=== PATIENT | male | born 1975 | race Caucasian/White ===

== ENCOUNTER 2024-06-20 08:52 | Outpatient (OUT) | payer OTHER, SELFPAY ==
--- NOTE | 2024-06-20 | XR_ITS ---
The [address] [address] Patient Name: ERIN COLE MRN: [id number] date: 1975 Sex: M Assigned Patient Location: Current Patient Location: Accession/Order Number: [id number] Exam Date: 06/20/2024 09:20 Report Date: 06/21/2024 06:37 At the request of: KARISSA BULLARD Procedure: XR foot CLARE min 3V EXAMINATION: XR foot CLARE min 3V HISTORY: BILATERAL FOOT PAIN COMPARISON: No relevant comparison available. FINDINGS: RIGHT FINDINGS: BONES: Degenerative ossified along dorsal margins of the talonavicular joints and the cuneiform-metatarsal joints. No fracture or dislocation. Moderate degenerative enthesopathic spurring at the Achilles tendon and plantar aponeurosis insertions into the calcaneus. SOFT TISSUES: No visible soft tissue swelling. OTHER: Negative. LEFT FINDINGS: BONES: Mild degenerative joint disease of the midfoot. No fracture or dislocation. Large calcaneal plantar spur and a calcification within the plantar aponeurosis. Moderate degenerative enthesopathic spurring at Achilles tendon insertion into the calcaneus. SOFT TISSUES: No visible soft tissue swelling. OTHER: Negative. XR/XR foot CLARE min 3V IMPRESSION: RIGHT CONCLUSION: Mild/moderate degenerative changes predominantly involving the midfoot. LEFT CONCLUSION: Mild to moderate degenerative changes of the midfoot and degenerative enthesopathic spurring of the calcaneus. Electronically authenticated by: DRE PHAN Date: 06/21/2024 06:37
== END 2024-06-20 08:53 | disposition home or self-care (01) ==
LOC: EC 08:52
PROVIDERS: PCP Family Medicine; Visit Provider Podiatrist Foot & Ankle Surgery
DX: M79.672 Pain in left foot (principal); M79.671 Pain in right foot; M19.072 Primary osteoarthritis, left ankle and foot; M19.071 Primary osteoarthritis, right ankle and foot
CPT/HCPCS: 73630

== ENCOUNTER 2024-07-28 10:57 | Outpatient (OUT) | payer OTHER, SELFPAY ==
--- OUTSIDE RECORDS SUMMARY | 2024-07-28 11:03 | XMS_ITS | CCD ---
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 Role Phone KATHRYN ., DR MCKNIGHT Admitting Unavailable HOY ., DR MCKNIGHT Attending Unavailable HOY ., DR MCKNIGHT Primary Care Unavailable HOY ., DR MCKNIGHT Admitting Unavailable HOY ., DR MCKNIGHT Attending Unavailable HOY ., DR MCKNIGHT Primary Care Unavailable ARIELY ., DR MCKNIGHT Consulting Unavailable Problems Problem Classification Problem Date Documented Da te Episodic/Chronic Diabetes mellitus with complications (4 sources) Type 2 diabetes mellitus with hyperglycemia; Translations: [TYPE 2 DM W/HYPERGLYCEMIA] Onset: 10-13-2022 Chronic Disorders of lipid metabolism (1 source) Hyperlipidemia, unspecified; Translations: [HYPERLIPIDEMIA UNSPECIFIED] Onset: 10-17-2022 Chronic Essential hypertension (1 source) Essential (primary) hypertension; Translations: [ESSENTIAL PRIMARY HYPERTENSION] Onset: 10-17-2022 Chronic Other screening for suspected conditions (not mental disorders or infectious disease) (2 sources) Encounter for screening for malignant neoplasm of prostate; Translations: [Encounter for screening for malignant neoplasm of rectum] Onset: 10-17-2022 Episodic Results Test Name Value Interpretation Reference Range Facil ity CBC AUTO DIFFon 10-13-2022 BASO # 0.1 103/ul Normal 0.0-0.1 [facility] Comment on above: Performed By: #### C BC #### [facility] [address] [address] [address] Gideon Pa Basophils/100 WBC (Bld) 0.7 % Normal 0.2-2.0 [facility] Comment on above: Performed By: #### C BC #### [facility] [address] [address] [address] Gideon Pa EO # 0.4 103/ul Normal 0.0-0.7 [facility] Comment on above: Performed By: #### C BC #### [facility] [address] [place] [address] Dr. Gideon Pa Eosinophils/100 WBC (Bld) 3.9 % Normal 0.9-7.0 [facility] Comment on above: Performed By: #### C BC #### [facility] [address] [place] [address] Dr. Gideon Pa Erythrocyte distribution width (RBC) [Ratio] 13.8 % Normal 11.0-15.0 [facility] Comment on above: Performed By: #### C BC #### [facility] [address] [place] [address] Dr. Gideon Pa Hematocrit (Bld) [Volume fraction] 51.7 % Normal 42.0-54.0 [facility] Comment on above: Performed By: #### C BC #### [facility] [address] [place] [address] Dr. Gideon Pa Hemoglobin (Bld) [Mass/Vol] 18.0 g/dL Normal 14.0-18.0 [facility] Comment on above: Performed By: #### C BC #### [facility] [address] [place] [address] Dr. Gideon Pa IG # 0.05 10e3/ul Critically high 0.00-0.03 [facility] Comment on above: Performed By: #### C BC #### [facility] [address] [place] [address] Dr. Gideon Pa IG % 0.5 % Normal 0.0-0.5 [facility] Comment on above: Performed By: #### C BC #### [facility] [address] [place] [address] Dr. Gideon Pa LYMPH # 2.4 103/ul Normal 1.2-3.8 [facility] Comment on above: Performed By: #### C BC #### [facility] [address] [place] [address] Dr. Gideon Pa Lymphocytes/100 WBC (Bld) 24.2 % Normal 20.5-60.0 [facility] Comment on above: Performed By: #### C BC #### [facility] [address] [place] [address] Dr. Gideon Pa MANUAL DIFF REQ NO Normal [facility] Comment on above: Performed By: #### C BC #### [facility] [address] [place] [address] Dr. Gideon Pa MCH (RBC) [Entitic mass] 29.5 pg Normal 25.9-34.0 [facility] Comment on above: Performed By: #### C BC #### [facility] [address] [place] [address] Dr. Gideon Pa MCHC (RBC) [Mass/Vol] 34.8 g/dL Normal 29.9-35.2 [facility] Comment on above: Performed By: #### C BC #### [facility] [address] [place] [address] Dr. Gideon Pa MCV (RBC) [Entitic vol] 84.6 fL Normal 80.0-94.0 [facility] Comment on above: Performed By: #### C BC #### [facility] [address] [place] [address] Dr. Gideon Pa MONO # 0.9 103/ul Critically high 0.3-0.8 [facility] Comment on above: Performed By: #### C BC #### [facility] [address] [place] [address] Dr. Gideon Pa Monocytes/100 WBC (Bld) 8.5 % Normal 1.7-12.0 [facility] Comment on above: Performed By: #### C BC #### [facility] [address] [place] [address] Dr. Gideon Pa NEUT # 6.3 103/ul Normal 1.4-6.5 [facility] Comment on above: Performed By: #### C BC #### [facility] [address] [place] [address] Dr. Gideon Pa Neutrophils/100 WBC (Bld) 62.2 % Normal 43.0-75.0 [facility] Comment on above: Performed By: #### C BC #### [facility] [address] [address] [address] Gideon Pa Platelet mean volume (Bld) [Entitic vol] 10.2 fL Normal 9.5-13.5 [facility] Comment on above: Performed By: #### C BC #### [facility] [address] [address] [address] Gideon Pa PLT 230 103/ul Normal 150-450 [facility] Comment on above: Performed By: #### C BC #### [facility] [address] [address] [address] Gideon Pa RBC 6.11 106/ul Critically high 4.70-6.10 [facility] Comment on above: Performed By: #### C BC #### [facility] [address] [place] [address] Dr. Gideon Pa WBC 10.1 103/ul Normal 4.0-11.0 [facility] Comment on above: Performed By: #### C BC #### [facility] [address] [place] [address] Dr. Gideon Pa FREE T3on 10-13-2022 FREE T3 2.98 pg/mlL Normal 2.18-3.98 [facility] Comment on above: Performed By: #### F T3, TSH, LIPID, T4, CMP #### [facility] [address] [place] [address] Dr. Gideon Pa GLYCOHEMOGLOBIN A1Con 2021 ADA RECOMMENDATION SEE BELOW Normal [facility] Comment on above: Result Comment: ADA RECOMMENDED LIMIT 4.0 - 6.0 ADA THERAPEUTIC TARGET < 7.0 ACTION SUGGESTED > 7.0 Performed By: #### A 1C #### [facility] [address] [place] [address] Dr. Gideon Pa Glucose [Mass/Vol] 240 mg/dL Normal [facility] Comment on above: Performed By: #### A 1C #### [facility] [address] [place] [address] Dr. Gideon Pa HbA1c (Bld) [Mass fraction] 10.0 % Critically high 4.5-6.2 [facility] Comment on above: Performed By: #### A 1C #### [facility] [address] [address] [address] Gideon Pa LIPID PROFILEon 10-13-2022 CHOL-HDL RATIO NORM SEE BELOW Normal [facility] Comment on above: Result Comment: 3.3 - 4.4 LOW RISK 4.4 - 7.1 AVERAGE RISK 7.1 - 11.0 MODERATE RISK >11.0 HIGH RISK Performed By: #### F T3, TSH, LIPID, T4, CMP #### [facility] [address] [address] [address] Gideon Pa Cholesterol [Mass/Vol] 150 mg/dL Normal <=200 [facility] Comment on above: Performed By: #### F T3, TSH, LIPID, T4, CMP #### [facility] [address] [address] [address] Gideon Pa Cholesterol in HDL [Mass/Vol] 30 mg/dL Critically low 40-60 [facility] Comment on above: Performed By: #### F T3, TSH, LIPID, T4, CMP #### [facility] [address] [address] [address] Gideon Pa Cholesterol in LDL [Mass/Vol] 81.0 mg/dL Normal [facility] Comment on above: Performed By: #### F T3, TSH, LIPID, T4, CMP #### [facility] [address] [address] [address] Gideon Pa Cholesterol.total/Cho lesterol in HDL [Mass ratio] 5.0 {ratio} Normal [facility] Comment on above: Performed By: #### F T3, TSH, LIPID, T4, CMP #### [facility] [address] [address] [address] Gideon Pa HDL NORMAL > or = 60 mg/dl - LOW CARDIOVASCULAR RISK <40 mg/dl - HIGH CARDIOVASCULAR RISK Normal [facility] Comment on above: Performed By: #### F T3, TSH, LIPID, T4, CMP #### [facility] [address] [address] [address] Gideon Pa LDL CALC NORMAL SEE BELOW Normal [facility] Comment on above: Result Comment: <100 mg/dl OPTIMAL 100 - 129 mg/dl NEAR OR ABOVE OPTIMAL 130 - 159 mg/dl BORDERLINE HIGH 160 - 189 mg/dl HIGH >190 mg/dl VERY HIGH Performed By: #### F T3, TSH, LIPID, T4, CMP #### [facility] [address] [address] [address] Gideon aP Triglyceride [Mass/Vol] 195 mg/dL Critically high <=150 [facility] Comment on above: Performed By: #### F T3, TSH, LIPID, T4, CMP #### [facility] [address] [address] [address] Gideon Pa VLDL CALC 39.0 mg/dL Normal [facility] Comment on above: Performed By: #### F T3, TSH, LIPID, T4, CMP #### [facility] [address] [place] [address] Dr. Gideon Pa PROF 14(COMP METB)on 022 Albumin [Mass/Vol] 3.7 g/dL Normal 3.4-5.0 [facility] Comment on above: Performed By: #### F T3, TSH, LIPID, T4, CMP #### [facility] [address] [place] [address] Dr. Gideon Pa Albumin/Globulin [Mass ratio] 1.0 {ratio} Normal [facility] Comment on above: Performed By: #### F T3, TSH, LIPID, T4, CMP #### [facility] [address] [place] [address] Dr. Gideon Pa ALP [Catalytic activity/Vol] 131 U/L Critically high 46-116 [facility] Comment on above: Performed By: #### F T3, TSH, LIPID, T4, CMP #### [facility] [address] [place] [address] Dr. Gideon Pa ALT [Catalytic activity/Vol] 29 U/L Normal 16-63 [facility] Comment on above: Performed By: #### F T3, TSH, LIPID, T4, CMP #### [facility] [address] [place] [address] Dr. Gideon Pa Anion gap [Moles/Vol] 12.4 mmol/L Normal Th e [facility] Comment on above: Performed By: #### F T3, TSH, LIPID, T4, CMP #### [facility] [address] [address] [address] Gideon Pa AST [Catalytic activity/Vol] 14 U/L Critically low 15-37 [facility] Comment on above: Performed By: #### F T3, TSH, LIPID, T4, CMP #### [facility] [address] [address] [address] Gideon Pa Bilirubin [Mass/Vol] 0.6 mg/dL Normal 0.2-1.0 [facility] Comment on above: Performed By: #### F T3, TSH, LIPID, T4, CMP #### [facility] [address] [address] [address] Gideon Pa Calcium [Mass/Vol] 8.9 mg/dL Normal 8.5-10.1 [facility] Comment on above: Performed By: #### F T3, TSH, LIPID, T4, CMP #### [facility] [address] [address] [address] Gideon Pa Chloride [Moles/Vol] 100 mmol/L Normal 98-107 [facility] Comment on above: Performed By: #### F T3, TSH, LIPID, T4, CMP #### [facility] [address] [address] [address] Gideon Pa CO2 [Moles/Vol] 26.8 mmol/L Normal 21.0-32.0 [facility] Comment on above: Performed By: #### F T3, TSH, LIPID, T4, CMP #### [facility] [address] [address] [address] Gideon Pa Creatinine [Mass/Vol] 0.73 mg/dL Normal 0.70-1.30 [facility] Comment on above: Performed By: #### F T3, TSH, LIPID, T4, CMP #### [facility] [address] [address] [address] Gideon Pa EGFR-AF MAURITIAN >60 Normal >=60 [facility] Comment on above: Performed By: #### F T3, TSH, LIPID, T4, CMP #### [facility] [address] [place] [address] Dr. Gideon Pa EGFR-NON AF MAURITIAN >60 Normal >=60 [facility] Comment on above: Performed By: #### F T3, TSH, LIPID, T4, CMP #### [facility] [address] [place] [address] Dr. Gideon Pa Globulin (S) [Mass/Vol] 3.8 g/dL Normal [facility] Comment on above: Performed By: #### F T3, TSH, LIPID, T4, CMP #### [facility] [address] [place] [address] Dr. Gideon Pa Glucose [Mass/Vol] 314 mg/dL Critically high 74-106 [facility] Comment on above: Performed By: #### F T3, TSH, LIPID, T4, CMP #### [facility] [address] [place] [address] Dr. Gideon Pa Potassium [Moles/Vol] 4.2 mmol/L Normal 3.5-5.1 [facility] Comment on above: Performed By: #### F T3, TSH, LIPID, T4, CMP #### [facility] [address] [place] [address] Dr. Gideon Pa Protein [Mass/Vol] 7.5 g/dL Normal 6.4-8.2 [facility] Comment on above: Performed By: #### F T3, TSH, LIPID, T4, CMP #### [facility] [address] [place] [address] Dr. Gideon Pa Sodium [Moles/Vol] 135 mmol/L Critically low 136-145 [facility] Comment on above: Performed By: #### F T3, TSH, LIPID, T4, CMP #### [facility] [address] [place] [address] Dr. Gideon Pa Urea nitrogen [Mass/Vol] 14.0 mg/dL Normal 7.0-18.0 [facility] Comment on above: Performed By: #### F T3, TSH, LIPID, T4, CMP #### [facility] [address], [place] [address] Dr. Gideon Pa Urea nitrogen/Creatinine [Mass ratio] 19.2 mg/mg Normal [facility] Comment on above: Performed By: #### F T3, TSH, LIPID, T4, CMP #### [facility] [address] [place], [place] [address] Dr. Gideon Pa T4on 10-13-2022 T4 [Mass/Vol] 11.30 ug/dL Normal 4.50-12.10 [facility] Comment on above: Performed By: #### F T3, TSH, LIPID, T4, CMP #### [facility] [address] [place], [place] [address] Dr. Gideon Pa TSHon 10-13-2022 TSH 0.920 uIU/mL Normal 0.358-3.740 [facility] Comment on above: Performed By: #### F T3, TSH, LIPID, T4, CMP #### [facility] [address] [place], [place] [address] Dr. Gideon Pa Encounters Encounter Date Encounter Type Care Provider Facility Start: 10-13-2022 End: 10-14-[address] JUAN LUIS PERALTA . Facility: Start: 08-26-[address] JUAN LUIS PERALTA . Facili ty:[facility]1 Procedures Date Procedure Procedure Detail Performing Clinician Start: 10-13-[address] RENETTA PERALTA . Comment on above: Performed By: #### P SASC #### [facility] [address] [id number] [address] Gideon Pa Payers Date Payer Category Payer Unknown [id number] 1975 Unknown [id number] 1960 Self-pay [id number] 1960 Unknown [id number] 1960 Unknown [id number] Summary Purpose Family History No Family History Records Found Advance Directives No Advanced Directives Records Found Additional Source Comments (unrecognized sect ion and content) No Status Records Found INFORMATION SOURCE (unrecogn ized section and content) DATE CREATED AUTHOR 01/13/2023 The Ryan sanchez FOR RECORDS PERTAINING TO PATIENTS WHO ARE OR HAVE BEEN ENROLLED IN A CHEMICAL DEPENDENCY/SUBSTANCEABUSE PROGRAM, SOME INFORMATION MAY BE OMITTED. This clinical summary was aggregated from multiple sources. Caution should be exercised in using it in the provision of clinical care. This summary normalizes information from multiple sources, and as a consequence, information in this document may materially change the coding, format and clinical context of patient data. In addition, data may be omitted in some cases. CLINICAL DECISIONS SHOULD BE BASED ON THE PRIMARY CLINICAL RECORDS. [facility] [employer] [facility]. provides no warranty or guarantee of the accuracy or completeness of information in this document.
[2024-07-28 11:27] LABS: Basophils Absolute Auto 0.1 10^3/uL (0.0-0.1); Basophils Percent Auto 0.6 % (0.2-2.0); Eosinophils Absolute Auto 0.4 10^3/uL (0.0-0.7); Eosinophils Percent Auto 3.9 % (0.9-7.0); Hematocrit 48.5 % (42.0-54.0); Hemoglobin 16.9 g/dL (14.0-18.0); Immature Granulocytes Abs Auto 0.05 10^3/uL (0.00-0.03); Immature Granulocytes Pct Auto 0.5 % (0.0-0.5); Lymphocytes Absolute Auto 2.8 10^3/uL (1.2-3.8); Mean Corpuscular HGB Conc 34.8 g/dL (29.9-35.2); Mean Corpuscular Hemoglobin 30.9 pg (25.9-34.0); Mean Corpuscular Volume 88.7 fL (80.0-94.0); Mean Platelet Volume 10.4 fL (9.5-13.5); Monocytes Percent Auto 9.2 % (1.7-12.0); Neutrophils Percent Auto 58.8 % (43.0-75.0); Platelet Count 226 10^3/uL (150-450); Red Blood Count 5.47 10^6/uL (4.70-6.10); White Blood Count 10.3 10^3/uL (4.0-11.0)
[2024-07-28 11:45] LABS: Estimated Average Glucose 189 mg/dL; Glycohemoglobin A1C 8.2 % (4.5-6.2)
[2024-07-28 11:54] LABS: Alanine Aminotransferase 33 U/L (16-63); Albumin Globulin Ratio 1.1; Albumin Level 3.6 g/dL (3.4-5.0); Alkaline Phosphatase 130 U/L (46-116); Anion Gap 8.8; Aspartate Amino Transferase 14 U/L (15-37); BUN Creatinine Ratio 11.6; Bilirubin Total 0.4 mg/dL (0.2-1.0); Calcium 9.3 mg/dL (8.5-10.1); Carbon Dioxide 30.3 mmol/L (21.0-32.0); Chloride 101 mmol/L (98-107); Chol HDL Ratio 4.3; Cholesterol 121 mg/dL (<=200); Estimated GFR (African America >60 (>=60); Estimated GFR (Non-African Ame >60 (>=60); Globulin 3.3 g/dL; Glucose 205 mg/dL (74-106); HDL Cholesterol 28 mg/dL (40-60); Potassium 4.1 mmol/L (3.5-5.1); Sodium 136 mmol/L (136-145); Thyroid Stimulating Hormone 1.077 uIU/mL (0.358-3.740); Total Protein 6.9 g/dL (6.4-8.2); Triglycerides 161 mg/dL (<=150); VLDL CHOLESTEROL 32.2 mg/dL
[2024-07-28 12:50] LABS: Free T4 1.22 ng/dL (0.76-1.46)
[2024-07-28 12:56] LABS: Prostate Specific Antigen Scrn 1.26 ng/mL (<=4.00)
== END 2024-07-28 10:58 | disposition home or self-care (01) ==
PROVIDERS: PCP Family Medicine; Visit Provider Family Medicine
DX: Z00.00 Encounter for general adult medical examination without abnormal findings (principal)
CPT/HCPCS: 36415; 80053; 80061; 83036; 84439; 84443; 85025; G0103

== ENCOUNTER 2024-11-20 10:48 | Outpatient (OUT) | payer OTHER, SELFPAY ==
--- NOTE | 2024-11-20 | XR_ITS ---
The [address] [address] Patient Name: ERIN COLE MRN: [id number] date: 1975 Sex: M Assigned Patient Location: [facility] Current Patient Location: Accession/Order Number: [id number] Exam Date: 11/20/2024 11:48 Report Date: 11/21/2024 08:57 At the request of: KARISSA BULLARD Procedure: XR foot LT min 3V PROCEDURE: XR foot RT min 3V, XR foot LT min 3V HISTORY: Right Foot Pain COMPARISON: None. FINDINGS: BONES:Mild degenerative changes of the midfoot with degenerative osteophytes along the dorsal articular margins. No fracture, dislocation, or bone lesion. Mild degenerative enthesopathic spurring of the calcaneus on the right, large calcaneal plantar spur on the left with separate calcification within the plantar aponeurosis likely from remote injury. No significant loss of plantar arch. SOFT TISSUES:No visible soft tissue swelling. EFFUSION:None visible. OTHER: Negative. XR/XR foot LT min 3V IMPRESSION: 1. No appreciable acute abnormality. 2. Mild-moderate degenerative changes bilaterally. Electronically authenticated by: DRE PHAN Date: 11/21/2024 08:57
--- NOTE | 2024-11-20 10:51 | XR_ITS ---
The [address] [address] Patient Name: ERIN COLE MRN: [id number] date: 1975 Sex: M Assigned Patient Location: [facility] Current Patient Location: Accession/Order Number: [id number] Exam Date: 11/20/2024 11:00 Report Date: 11/21/2024 08:57 At the request of: KARISSA BULLARD Procedure: XR foot RT min 3V PROCEDURE: XR foot RT min 3V, XR foot LT min 3V HISTORY: Right Foot Pain COMPARISON: None. FINDINGS: BONES:Mild degenerative changes of the midfoot with degenerative osteophytes along the dorsal articular margins. No fracture, dislocation, or bone lesion. Mild degenerative enthesopathic spurring of the calcaneus on the right, large calcaneal plantar spur on the left with separate calcification within the plantar aponeurosis likely from remote injury. No significant loss of plantar arch. SOFT TISSUES:No visible soft tissue swelling. EFFUSION:None visible. OTHER: Negative. XR/XR foot RT min 3V IMPRESSION: 1. No appreciable acute abnormality. 2. Mild-moderate degenerative changes bilaterally. Electronically authenticated by: DRE PHAN Date: 11/21/2024 08:57
--- OUTSIDE RECORDS SUMMARY | 2024-11-20 11:06 | XMS_ITS | CCD ---
Author Organization [facility] Care Team Providers Care Rate Manager Name Role Phone KATHRYN ., DR MCKNIGHT [...] 10-13-2022 BASO # 0.1 103/ul Normal 0.0-0.1 [facility] Comment on above: Performed By: #### C BC #### [facility] [address] [address] [address] Gideon Pa Basophils/100 WBC (Bld) 0.7 % Normal 0.2-2.0 [facility] Comment on above: Performed By: #### C BC #### [facility] [address] [address] [address] Gideon Pa EO # 0.4 103/ul Normal 0.0-0.7 [facility] Comment on above: Performed By: #### C BC #### [facility] [address] [place] [address] Dr. Gideon Pa Eosinophils/100 WBC (Bld) 3.9 % Normal 0.9-7.0 [facility] Comment on above: Performed By: #### C BC #### [facility] [address] [place] [address] Dr. Gideon Pa Erythrocyte distribution width (RBC) [Ratio] 13.8 % Normal 11.0-15.0 [facility] Comment on above: Performed By: #### C BC #### [facility] [address] [place] [address] Dr. Gideon Pa Hematocrit (Bld) [Volume fraction] 51.7 % Normal 42.0-54.0 [facility] Comment on above: Performed By: #### C BC #### [facility] [address] [place] [address] Dr. Gideon Pa Hemoglobin (Bld) [Mass/Vol] 18.0 g/dL Normal 14.0-18.0 [facility] Comment on above: Performed By: #### C BC #### [facility] [address] [place] [address] Dr. Gideon Pa IG # 0.05 10e3/ul Critically high 0.00-0.03 [facility] Comment on above: Performed By: #### C BC #### [facility] [address] [place] [address] Dr. Gideon Pa IG % 0.5 % Normal 0.0-0.5 [facility] Comment on above: Performed By: #### C BC #### [facility] [address] [place] [address] Dr. Gideon Pa LYMPH # 2.4 103/ul Normal 1.2-3.8 [facility] Comment on above: Performed By: #### C BC #### [facility] [address] [place] [address] Dr. Gideon Pa Lymphocytes/100 WBC (Bld) 24.2 % Normal 20.5-60.0 [facility] Comment on above: Performed By: #### C BC #### [facility] [address] [place] [address] Dr. Gideon Pa MANUAL DIFF REQ NO Normal [facility] Comment on above: Performed By: #### C BC #### [facility] [address] [place] [address] Dr. Gideon Pa MCH (RBC) [Entitic mass] 29.5 pg Normal 25.9-34.0 [facility] Comment on above: Performed By: #### C BC #### [facility] [address] [place] [address] Dr. Gideon Pa MCHC (RBC) [Mass/Vol] 34.8 g/dL Normal 29.9-35.2 [facility] Comment on above: Performed By: #### C BC #### [facility] [address] [place] [address] Dr. Gideon Pa MCV (RBC) [Entitic vol] 84.6 fL Normal 80.0-94.0 [facility] Comment on above: Performed By: #### C BC #### [facility] [address] [place] [address] Dr. Gideon Pa MONO # 0.9 103/ul Critically high 0.3-0.8 [facility] Comment on above: Performed By: #### C BC #### [facility] [address] [place] [address] Dr. Gideon Pa Monocytes/100 WBC (Bld) 8.5 % Normal 1.7-12.0 [facility] Comment on above: Performed By: #### C BC #### [facility] [address] [place] [address] Dr. Gideon Pa NEUT # 6.3 103/ul Normal 1.4-6.5 [facility] Comment on above: Performed By: #### C BC #### [facility] [address] [place] [address] Dr. Gideon Pa Neutrophils/100 WBC (Bld) 62.2 % Normal 43.0-75.0 [facility] Comment on above: Performed By: #### C BC #### [facility] [address] [address] [address] Gideon Pa Platelet mean volume (Bld) [Entitic vol] 10.2 fL Normal 9.5-13.5 [facility] Comment on above: Performed By: #### C BC #### [facility] [address] [address] [address] Gideon Pa PLT 230 103/ul Normal 150-450 [facility] Comment on above: Performed By: #### C BC #### [facility] [address] [address] [address] Gideon Pa RBC 6.11 106/ul Critically high 4.70-6.10 [facility] Comment on above: Performed By: #### C BC #### [facility] [address] [place] [address] Dr. Gideon Pa WBC 10.1 103/ul Normal 4.0-11.0 [facility] Comment on above: Performed By: #### C BC #### [facility] [address] [place] [address] Dr. Gideon Pa FREE T3on 10-13-2022 FREE T3 2.98 pg/mlL Normal 2.18-3.98 [facility] Comment on above: Performed By: #### F T3, TSH, LIPID, T4, CMP #### [facility] [address] [place] [address] Dr. Gideon Pa GLYCOHEMOGLOBIN A1Con 2021 ADA RECOMMENDATION SEE BELOW Normal [facility] Comment on above: Result Comment: ADA RECOMMENDED LIMIT 4.0 - 6.0 ADA THERAPEUTIC TARGET < 7.0 ACTION SUGGESTED > 7.0 Performed By: #### A 1C #### [facility] [address] [place] [address] Dr. Gideon Pa Glucose [Mass/Vol] 240 mg/dL Normal [facility] Comment on above: Performed By: #### A 1C #### [facility] [address] [place] [address] Dr. Gideon Pa HbA1c (Bld) [Mass fraction] 10.0 % Critically high 4.5-6.2 [facility] Comment on above: Performed By: #### A 1C #### [facility] [address] [address] [address] Gideon Pa LIPID PROFILEon 10-13-2022 CHOL-HDL RATIO NORM SEE BELOW Normal [facility] Comment on above: Result Comment: 3.3 - 4.4 LOW RISK 4.4 - 7.1 AVERAGE RISK 7.1 - 11.0 MODERATE RISK >11.0 HIGH RISK Performed By: #### F T3, TSH, LIPID, T4, CMP #### [facility] [address] [address] [address] Gideon Pa Cholesterol [Mass/Vol] 150 mg/dL Normal <=200 [facility] Comment on above: Performed By: #### F T3, TSH, LIPID, T4, CMP #### [facility] [address] [address] [address] Gideon Pa Cholesterol in HDL [Mass/Vol] 30 mg/dL Critically low 40-60 [facility] Comment on above: Performed By: #### F T3, TSH, LIPID, T4, CMP #### [facility] [address] [address] [address] Gideon Pa Cholesterol in LDL [Mass/Vol] 81.0 mg/dL Normal [facility] Comment on above: Performed By: #### F T3, TSH, LIPID, T4, CMP #### [facility] [address] [address] [address] Gideon Pa Cholesterol.total/Cho lesterol in HDL [Mass ratio] 5.0 {ratio} Normal [facility] Comment on above: Performed By: #### F T3, TSH, LIPID, T4, CMP #### [facility] [address] [address] [address] Gideon Pa HDL NORMAL > or = 60 mg/dl - LOW CARDIOVASCULAR RISK <40 mg/dl - HIGH CARDIOVASCULAR RISK Normal [facility] Comment on above: Performed By: #### F T3, TSH, LIPID, T4, CMP #### [facility] [address] [address] [address] Gideon Pa LDL CALC NORMAL SEE BELOW Normal [facility] Comment on above: Result Comment: <100 mg/dl OPTIMAL 100 - 129 mg/dl NEAR OR ABOVE OPTIMAL 130 - 159 mg/dl BORDERLINE HIGH 160 - 189 mg/dl HIGH >190 mg/dl VERY HIGH Performed By: #### F T3, TSH, LIPID, T4, CMP #### [facility] [address] [address] [address] Gideon Pa Triglyceride [Mass/Vol] 195 mg/dL Critically high <=150 [facility] Comment on above: Performed By: #### F T3, TSH, LIPID, T4, CMP #### [facility] [address] [address] [address] Gideon Pa VLDL CALC 39.0 mg/dL Normal [facility] Comment on above: Performed By: #### F T3, TSH, LIPID, T4, CMP #### [facility] [address] [place] [address] Dr. Gideon Pa PROF 14(COMP METB)on 022 Albumin [Mass/Vol] 3.7 g/dL Normal 3.4-5.0 [facility] Comment on above: Performed By: #### F T3, TSH, LIPID, T4, CMP #### [facility] [address] [place] [address] Dr. Gideon Pa Albumin/Globulin [Mass ratio] 1.0 {ratio} Normal [facility] Comment on above: Performed By: #### F T3, TSH, LIPID, T4, CMP #### [facility] [address] [place] [address] Dr. Gideon Pa ALP [Catalytic activity/Vol] 131 U/L Critically high 46-116 [facility] Comment on above: Performed By: #### F T3, TSH, LIPID, T4, CMP #### [facility] [address] [place] [address] Dr. Gideon Pa ALT [Catalytic activity/Vol] 29 U/L Normal 16-63 [facility] Comment on above: Performed By: #### F T3, TSH, LIPID, T4, CMP #### [facility] [address] [place] [address] Dr. Gideon Pa Anion gap [Moles/Vol] 12.4 mmol/L Normal [facility] Comment on above: Performed By: #### F T3, TSH, LIPID, T4, CMP #### [facility] [address] [address] [address] Gideon Pa AST [Catalytic activity/Vol] 14 U/L Critically low 15-37 [facility] Comment on above: Performed By: #### F T3, TSH, LIPID, T4, CMP #### [facility] [address] [address] [address] Gideon Pa Bilirubin [Mass/Vol] 0.6 mg/dL Normal 0.2-1.0 [facility] Comment on above: Performed By: #### F T3, TSH, LIPID, T4, CMP #### [facility] [address] [address] [address] Gideon Pa Calcium [Mass/Vol] 8.9 mg/dL Normal 8.5-10.1 [facility] Comment on above: Performed By: #### F T3, TSH, LIPID, T4, CMP #### [facility] [address] [address] [address] Gideon Pa Chloride [Moles/Vol] 100 mmol/L Normal 98-107 [facility] Comment on above: Performed By: #### F T3, TSH, LIPID, T4, CMP #### [facility] [address] [address] [address] Gideon Pa CO2 [Moles/Vol] 26.8 mmol/L Normal 21.0-32.0 [facility] Comment on above: Performed By: #### F T3, TSH, LIPID, T4, CMP #### [facility] [address] [address] [address] Gideon Pa Creatinine [Mass/Vol] 0.73 mg/dL Normal 0.70-1.30 [facility] Comment on above: Performed By: #### F T3, TSH, LIPID, T4, CMP #### [facility] [address] [address] [address] Gideon Pa EGFR-AF CYMRAES >60 Normal >=60 [facility] Comment on above: Performed By: #### F T3, TSH, LIPID, T4, CMP #### [facility] [address] [place] [address] Dr. Gideon Pa EGFR-NON AF CYMRAES >60 Normal >=60 [facility] Comment on above: Performed By: #### F T3, TSH, LIPID, T4, CMP #### [facility] [address] [place] [address] Dr. Gideon Pa Globulin (S) [Mass/Vol] 3.8 g/dL Normal [facility] Comment on above: Performed By: #### F T3, TSH, LIPID, T4, CMP #### [facility] [address] [place] [address] Dr. Gideno Pa Glucose [Mass/Vol] 314 mg/dL Critically high 74-106 [facility] Comment on above: Performed By: #### F T3, TSH, LIPID, T4, CMP #### [facility] [address] [place] [address] Dr. Gideon Pa Potassium [Moles/Vol] 4.2 mmol/L Normal 3.5-5.1 [facility] Comment on above: Performed By: #### F T3, TSH, LIPID, T4, CMP #### [facility] [address] [place] [address] Dr. Gideon Pa Protein [Mass/Vol] 7.5 g/dL Normal 6.4-8.2 [facility] Comment on above: Performed By: #### F T3, TSH, LIPID, T4, CMP #### [facility] [address] [place] [address] Dr. Gideon Pa Sodium [Moles/Vol] 135 mmol/L Critically low 136-145 [facility] [place] Comment on above: Performed By: #### F T3, TSH, LIPID, T4, CMP #### [facility] [address] [place] [address] Dr. Gideon Pa Urea nitrogen [Mass/Vol] 14.0 mg/dL Normal 7.0-18.0 [facility] Comment on above: Performed By: #### F T3, TSH, LIPID, T4, CMP #### [facility] [address] [place], [place] [address] Dr. Gideon Pa Urea nitrogen/Creatinine [Mass ratio] 19.2 mg/mg Normal [facility] Comment on above: Performed By: #### F T3, TSH, LIPID, T4, CMP #### [facility] [address] [place], [place] [address] Dr. Gideon Pa T4on 10-13-2022 T4 [Mass/Vol] 11.30 ug/dL Normal 4.50-12.10 [facility] Comment on above: Performed By: #### F T3, TSH, LIPID, T4, CMP #### [facility] [address] [place], [place] [address] Dr. Gideon Pa TSHon 10-13-2022 TSH 0.920 uIU/mL Normal 0.358-3.740 [facility] Comment on above: Performed By: #### F T3, TSH, LIPID, T4, CMP #### [facility] [address] [place], [place] [address] Dr. Gideon Pa Encounters Encounter Date Encounter Type Care Provider Facility Start: 10-13-2022 End: 10-14-[address] JUAN LUIS PERALTA . Facility: Start: 08-26-[address] JUAN LUIS PERALTA . Facili ty:[facility]1 Procedures Date Procedure Procedure Detail Performing Clinician Start: 10-13-[address] RENETTA PERALTA . Comment on above: Performed By: #### P SASC #### [facility] [id number] Gideon Pa Payers Date Payer Category Payer Unknown [id number] 1974 Unknown [id number] 1959 Self-pay [id number] 1960 Unknown [id number] 1960 Unknown [id number] Summary Purpose Family History No Family History [...] BE BASED ON THE PRIMARY CLINICAL RECORDS. [facility] [employer] [facility]. provides no warranty or guarantee of the accuracy or completeness of information in this document.
== END 2024-11-20 10:49 | disposition home or self-care (01) ==
LOC: RAD 10:48
PROVIDERS: PCP Family Medicine; Visit Provider Podiatrist Foot & Ankle Surgery
DX: M79.671 Pain in right foot (principal); M79.672 Pain in left foot
CPT/HCPCS: 73630

== ENCOUNTER 2024-11-26 10:28 | Outpatient (OUT) | payer OTHER, SELFPAY ==
--- OUTSIDE RECORDS SUMMARY | 2024-11-26 10:49 | XMS_ITS | CCD ---
Author Organization [facility] Care Team Providers Care Spinner Hand Name Role Phone KATHRYN ., DR MCKNIGHT [...] 10-13-2022 BASO # 0.1 103/ul Normal 0.0-0.1 [facility] Comment on above: Performed By: #### C BC #### [facility] [address] [address] [address] Gideon Pa Basophils/100 WBC (Bld) 0.7 % Normal 0.2-2.0 [facility] Comment on above: Performed By: #### C BC #### [facility] [address] [address] [address] Gideon Pa EO # 0.4 103/ul Normal 0.0-0.7 [facility] Comment on above: Performed By: #### C BC #### [facility] [address] [place] [address] Dr. Gideon Pa Eosinophils/100 WBC (Bld) 3.9 % Normal 0.9-7.0 [facility] Comment on above: Performed By: #### C BC #### [facility] [address] [place] [address] Dr. Gideon Pa Erythrocyte distribution width (RBC) [Ratio] 13.8 % Normal 11.0-15.0 [facility] Comment on above: Performed By: #### C BC #### [facility] [address] [place] [address] Dr. Gideon Pa Hematocrit (Bld) [Volume fraction] 51.7 % Normal 42.0-54.0 [facility] Comment on above: Performed By: #### C BC #### [facility] [address] [place] [address] Dr. Gideon Pa Hemoglobin (Bld) [Mass/Vol] 18.0 g/dL Normal 14.0-18.0 [facility] Comment on above: Performed By: #### C BC #### [facility] [address] [place] [address] Dr. Gideon Pa IG # 0.05 10e3/ul Critically high 0.00-0.03 [facility] Comment on above: Performed By: #### C BC #### [facility] [address] [place] [address] Dr. Gideon Pa IG % 0.5 % Normal 0.0-0.5 [facility] Comment on above: Performed By: #### C BC #### [facility] [address] [place] [address] Dr. Gideon Pa LYMPH # 2.4 103/ul Normal 1.2-3.8 [facility] Comment on above: Performed By: #### C BC #### [facility] [address] [place] [address] Dr. Gideon Pa Lymphocytes/100 WBC (Bld) 24.2 % Normal 20.5-60.0 [facility] Comment on above: Performed By: #### C BC #### [facility] [address] [place] [address] Dr. Gideon Pa MANUAL DIFF REQ NO Normal [facility] Comment on above: Performed By: #### C BC #### [facility] [address] [place] [address] Dr. Gideon Pa MCH (RBC) [Entitic mass] 29.5 pg Normal 25.9-34.0 [facility] Comment on above: Performed By: #### C BC #### [facility] [address] [place] [address] Dr. Gideon Pa MCHC (RBC) [Mass/Vol] 34.8 g/dL Normal 29.9-35.2 [facility] Comment on above: Performed By: #### C BC #### [facility] [address] [place] [address] Dr. Gideon Pa MCV (RBC) [Entitic vol] 84.6 fL Normal 80.0-94.0 [facility] Comment on above: Performed By: #### C BC #### [facility] [address] [place] [address] Dr. Gideon Pa MONO # 0.9 103/ul Critically high 0.3-0.8 [facility] Comment on above: Performed By: #### C BC #### [facility] [address] [place] [address] Dr. Gideon Pa Monocytes/100 WBC (Bld) 8.5 % Normal 1.7-12.0 [facility] Comment on above: Performed By: #### C BC #### [facility] [address] [place] [address] Dr. Gideon Pa NEUT # 6.3 103/ul Normal 1.4-6.5 [facility] Comment on above: Performed By: #### C BC #### [facility] [address] [place] [address] Dr. Gideon Pa Neutrophils/100 WBC (Bld) 62.2 % Normal 43.0-75.0 [facility] Comment on above: Performed By: #### C BC #### [facility] [address] [address] [address] Gideon Pa Platelet mean volume (Bld) [Entitic vol] 10.2 fL Normal 9.5-13.5 [facility] Comment on above: Performed By: #### C BC #### [facility] [address] [address] [address] Gideon Pa PLT 230 103/ul Normal 150-450 [facility] Comment on above: Performed By: #### C BC #### [facility] [address] [address] [address] Gideon Pa RBC 6.11 106/ul Critically high 4.70-6.10 [facility] Comment on above: Performed By: #### C BC #### [facility] [address] [place] [address] Dr. Gideon Pa WBC 10.1 103/ul Normal 4.0-11.0 [facility] Comment on above: Performed By: #### C BC #### [facility] [address] [place] [address] Dr. Gideon Pa FREE T3on 10-13-2022 FREE T3 2.98 pg/mlL Normal 2.18-3.98 [facility] Comment on above: Performed By: #### F T3, TSH, LIPID, T4, CMP #### [facility] [address] [place] [address] Dr. Gideon Pa GLYCOHEMOGLOBIN A1Con 2021 ADA RECOMMENDATION SEE BELOW Normal [facility] Comment on above: Result Comment: ADA RECOMMENDED LIMIT 4.0 - 6.0 ADA THERAPEUTIC TARGET < 7.0 ACTION SUGGESTED > 7.0 Performed By: #### A 1C #### [facility] [address] [place] [address] Dr. Gideon Pa Glucose [Mass/Vol] 240 mg/dL Normal [facility] Comment on above: Performed By: #### A 1C #### [facility] [address] [place] [address] Dr. Gideon Pa HbA1c (Bld) [Mass fraction] 10.0 % Critically high 4.5-6.2 [facility] Comment on above: Performed By: #### A 1C #### [facility] [address] [address] [address] Gideon Pa LIPID PROFILEon 10-13-2022 CHOL-HDL RATIO NORM SEE BELOW Normal [facility] Comment on above: Result Comment: 3.3 - 4.4 LOW RISK 4.4 - 7.1 AVERAGE RISK 7.1 - 11.0 MODERATE RISK >11.0 HIGH RISK Performed By: #### F T3, TSH, LIPID, T4, CMP #### [facility] [address] [address] [address] Gideon Pa Cholesterol [Mass/Vol] 150 mg/dL Normal <=200 [facility] Comment on above: Performed By: #### F T3, TSH, LIPID, T4, CMP #### [facility] [address] [address] [address] Gideon Pa Cholesterol in HDL [Mass/Vol] 30 mg/dL Critically low 40-60 [facility] Comment on above: Performed By: #### F T3, TSH, LIPID, T4, CMP #### [facility] [address] [address] [address] Gideon Pa Cholesterol in LDL [Mass/Vol] 81.0 mg/dL Normal [facility] Comment on above: Performed By: #### F T3, TSH, LIPID, T4, CMP #### [facility] [address] [address] [address] Gideon Pa Cholesterol.total/Cho lesterol in HDL [Mass ratio] 5.0 {ratio} Normal [facility] Comment on above: Performed By: #### F T3, TSH, LIPID, T4, CMP #### [facility] [address] [address] [address] Gideon Pa HDL NORMAL > or = 60 mg/dl - LOW CARDIOVASCULAR RISK <40 mg/dl - HIGH CARDIOVASCULAR RISK Normal [facility] Comment on above: Performed By: #### F T3, TSH, LIPID, T4, CMP #### [facility] [address] [address] [address] Gideon Pa LDL CALC NORMAL SEE BELOW Normal [facility] Comment on above: Result Comment: <100 mg/dl OPTIMAL 100 - 129 mg/dl NEAR OR ABOVE OPTIMAL 130 - 159 mg/dl BORDERLINE HIGH 160 - 189 mg/dl HIGH >190 mg/dl VERY HIGH Performed By: #### F T3, TSH, LIPID, T4, CMP #### [facility] [address] [address] [address] Gideon Pa Triglyceride [Mass/Vol] 195 mg/dL Critically high <=150 [facility] Comment on above: Performed By: #### F T3, TSH, LIPID, T4, CMP #### [facility] [address] [address] [address] Gideon Pa VLDL CALC 39.0 mg/dL Normal [facility] Comment on above: Performed By: #### F T3, TSH, LIPID, T4, CMP #### [facility] [address] [place] [address] Dr. Gideon Pa PROF 14(COMP METB)on 022 Albumin [Mass/Vol] 3.7 g/dL Normal 3.4-5.0 [facility] Comment on above: Performed By: #### F T3, TSH, LIPID, T4, CMP #### [facility] [address] [place] [address] Dr. Gideon Pa Albumin/Globulin [Mass ratio] 1.0 {ratio} Normal [facility] Comment on above: Performed By: #### F T3, TSH, LIPID, T4, CMP #### [facility] [address] [place] [address] Dr. Gideon Pa ALP [Catalytic activity/Vol] 131 U/L Critically high 46-116 [facility] Comment on above: Performed By: #### F T3, TSH, LIPID, T4, CMP #### [facility] [address] [place] [address] Dr. Gideon Pa ALT [Catalytic activity/Vol] 29 U/L Normal 16-63 [facility] Comment on above: Performed By: #### F T3, TSH, LIPID, T4, CMP #### [facility] [address] [place] [address] Dr. Gideon Pa Anion gap [Moles/Vol] 12.4 mmol/L Normal [facility] Comment on above: Performed By: #### F T3, TSH, LIPID, T4, CMP #### [facility] [address] [address] [address] Gideon Pa AST [Catalytic activity/Vol] 14 U/L Critically low 15-37 [facility] Comment on above: Performed By: #### F T3, TSH, LIPID, T4, CMP #### [facility] [address] [address] [address] Gideon Pa Bilirubin [Mass/Vol] 0.6 mg/dL Normal 0.2-1.0 [facility] Comment on above: Performed By: #### F T3, TSH, LIPID, T4, CMP #### [facility] [address] [address] [address] Gideon Pa Calcium [Mass/Vol] 8.9 mg/dL Normal 8.5-10.1 [facility] Comment on above: Performed By: #### F T3, TSH, LIPID, T4, CMP #### [facility] [address] [address] [address] Gideon Pa Chloride [Moles/Vol] 100 mmol/L Normal 98-107 [facility] Comment on above: Performed By: #### F T3, TSH, LIPID, T4, CMP #### [facility] [address] [address] [address] Gideon Pa CO2 [Moles/Vol] 26.8 mmol/L Normal 21.0-32.0 [facility] Comment on above: Performed By: #### F T3, TSH, LIPID, T4, CMP #### [facility] [address] [address] [address] Gideon Pa Creatinine [Mass/Vol] 0.73 mg/dL Normal 0.70-1.30 [facility] Comment on above: Performed By: #### F T3, TSH, LIPID, T4, CMP #### [facility] [address] [address] [address] Gideon Pa EGFR-AF TURKISH >60 Normal >=60 [facility] Comment on above: Performed By: #### F T3, TSH, LIPID, T4, CMP #### [facility] [address] [place] [address] Dr. Gideon Pa EGFR-NON AF TURKISH >60 Normal >=60 [facility] Comment on above: Performed By: #### F T3, TSH, LIPID, T4, CMP #### [facility] [address] [place] [address] Dr. Gideon Pa Globulin (S) [Mass/Vol] 3.8 g/dL Normal [facility] Comment on above: Performed By: #### F T3, TSH, LIPID, T4, CMP #### [facility] [address] [place] [address] Dr. Gideon Pa Glucose [Mass/Vol] 314 mg/dL Critically high 74-106 [facility] Comment on above: Performed By: #### F T3, TSH, LIPID, T4, CMP #### [facility] [address] [place] [address] Dr. Gideon Pa Potassium [Moles/Vol] 4.2 mmol/L Normal 3.5-5.1 [facility] Comment on above: Performed By: #### F T3, TSH, LIPID, T4, CMP #### [facility] [address] [place] [address] Dr. Gideon Pa Protein [Mass/Vol] 7.5 g/dL Normal 6.4-8.2 [facility] Comment on above: Performed By: #### F T3, TSH, LIPID, T4, CMP #### [facility] [address] [place] [address] Dr. Gideon Pa Sodium [Moles/Vol] 135 mmol/L Critically low 136-145 [facility] Comment on above: Performed By: #### F T3, TSH, LIPID, T4, CMP #### [facility] [address] [place] [address] Dr. Gideon Pa Urea nitrogen [Mass/Vol] 14.0 mg/dL Normal 7.0-18.0 [facility] Comment on above: Performed By: #### F T3, TSH, LIPID, T4, CMP #### [facility] [address] [place], [place] [address] Dr. Gideon Pa Urea nitrogen/Creatinine [Mass ratio] 19.2 mg/mg Normal [facility] Comment on above: Performed By: #### F T3, TSH, LIPID, T4, CMP #### [facility] [address] [place], [place] [address] Dr. Gideon Pa T4on 10-13-2022 T4 [Mass/Vol] 11.30 ug/dL Normal 4.50-12.10 [facility] Comment on above: Performed By: #### F T3, TSH, LIPID, T4, CMP #### [facility] [address] [place], [place] [address] Dr. Gideon Pa TSHon 10-13-2022 TSH 0.920 uIU/mL Normal 0.358-3.[address] [facility] Comment on above: Performed By: #### F T3, TSH, LIPID, T4, CMP #### [facility] [address] [place], [place] [address] Dr. Gideon Pa Encounters Encounter Date Encounter Type Care Provider Facility Start: 10-13-2022 End: 10-14-[address] JUAN LUIS PERALTA . Facility: Start: 08-26-[address] JUAN LUIS PERALTA . Facili ty:[facility]1 Procedures Date Procedure Procedure Detail Performing Clinician Start: 10-13-[address] RENETTA PERALTA . Comment on above: Performed By: #### P SASC #### [facility] [id number] Gideon Pa Payers Date Payer Category Payer Unknown [id number] 1974 Unknown [id number] 1959 Self-pay [id number] 1960 Unknown [id number] 1960 Unknown [id number] Summary Purpose Family History No Family History [...] BE BASED ON THE PRIMARY CLINICAL RECORDS. [facility] [employer] [facility]. provides no warranty or guarantee of the accuracy or completeness of information in this document.
--- NOTE | 2024-11-26 11:42 | P.CN_ITS ---
Consult Note: HPI Data of Consult Patient: new to practice Consult date: 11/26/24 Requesting Physician: Dalton Andrade MD Primary Care Provider: Brooks Montejo MD Consult Narrative Reason for consult: bilateral foot pain Narrative: 49yom who presents for evaluation. longstanding bilateral foot pain, sometimes moves into bilateral legs. initially tried lyrica, which helped for a short period of time. no lumbar imaging available for review. foot xrs show mild degenerative changes. denies adverse med side effects. cc:: CC: Dalton Andrade MD Review of Systems ROS Status of ROS 10 or more systems reviewed and unremark able except as noted in history and below Meds Home Medications and Allergies Home Medications ?Medication ?Instructions ?Recorded ?Confirmed ?Type etodolac 400 mg tablet 400 mg PO Q12H PRN pain 11/26/24 11/26/24 History glimepiride 2 mg tablet 1 mg PO DAILY 11/26/24 11/26/24 History lisinopril 30 mg tablet 30 mg PO DAILY 11/26/24 11/26/24 History metformin 500 mg tablet 500 mg PO BID 11/26/24 11/26/24 History pregabalin 150 mg capsule (Lyrica) 150 mg PO TID 11/26/24 11/26/24 History Exam Narrative Exam Narrative: Psych-alert and oriented x 3. Attentive and appropriate, constitutionally normal, displays normal mood and affect per situation. There are no obvious deficits in memory, reasoning, or intellect.? Skin-no obvious rashes, bruising, erythema noted to the patient's area of pain.? Extremities- extremities are warm with minimal edema and palpable pulses. Lumbar-tenderness to palpation noted in the lumbar spine and paraspinal mus culature. Pain is not elicited with flexion, extension, and lateral rotation of the lumbar spine. Range of motion is not diminished with these motions. Facet loading maneuvers are negative.? Strength-noted to be unremarkable Sensory-no notable sensory deficits in the bilateral lower extremities to touch or pinprick in all dermatomal distributions with the exception to decreased sensation to the bilateral feet. Coordination remains intact.? Gait remains non-antalgic. Assessment and Plan Assessment and Plan (1) Painful diabetic neuropathy: (2) Bilateral foot pain: Plan 49yom who presents for evaluation. failed conservative measures, as noted. given symptoms and history, will have him undergo bilateral lower extremity EMG. he is in agreement. discussed that depending on etiology, may be candidate for Qutenza patch vs. SCS. expressed understanding. meds reviewed. will increase lyrica to 150mg tid, as well as trial lodine 400mg bid prn. follow up after EMG.
== END 2024-11-26 10:29 | disposition home or self-care (01) ==
LOC: PM 10:30
PROVIDERS: PCP Family Medicine; Visit Provider Anesthesiology
DX: E13.40 Other specified diabetes mellitus with diabetic neuropathy, unspecified (principal); M79.672 Pain in left foot; M79.671 Pain in right foot
CPT/HCPCS: G0463

== ENCOUNTER 2025-01-10 12:57 | Outpatient (OUT) | payer OTHER, SELFPAY ==
--- OUTSIDE RECORDS SUMMARY | 2025-01-10 13:01 | XMS_ITS | CCD ---
Author Organization [facility] Care Team Providers Care Home Health Specialist Name Role Phone KATHRYN ., DR MCKNIGHT Admitting Unavailable HOY ., DR MCKNIGHT Attending Unavailable HOY ., DR MCKNIGTH Primary Care Unavailable HOY ., DR MCKNIGHT Admitting Unavailable HOY ., DR MCKNIGHT Attending Unavailable HOY ., DR MCKNIGHT Primary Care Unavailable HOY ., DR MCKNIGHT Consulting Unavailable Raymond YAO, Andrius Chase Attending Unavailable Raymond YAO, Andrius Unavailable [phone] Brooks Peralta MD Primary Care Provider [phone] Hunter Valencia DO Unavailable HUNTER VALENCIA Attending Unavailable RAYMOND, ANDRIUS Referring Unavailable Problems Problem Classification Problem Date Documented Da te Episodic/Chronic Diabetes mellitus with complications (4 sources) Type 2 diabetes mellitus with hyperglycemia; Translations: [TYPE 2 DM W/HYPERGLYCEMIA] Onset: 10-13-2022 Chronic Disorders of lipid metabolism (1 source) Hyperlipidemia, unspecified; Translations: [HYPERLIPIDEMIA UNSPECIFIED] Onset: 10-17-2022 Chronic Essential hypertension (1 source) Essential (primary) hypertension; Translations: [ESSENTIAL PRIMARY HYPERTENSION] Onset: 10-17-2022 Chronic Other nervous system disorders (1 source) Paresthesia; Translations: [Paresthesia of skin] 01-03-2025 Episodic Other screening for suspected conditions (not mental disorders or infectious disease) (2 sources) Encounter for screening for malignant neoplasm of prostate; Translations: [Encounter for screening for malignant neoplasm of rectum] Onset: 10-17-2022 Episodic Results Test Name Value Interpretation Reference Range Facility EMG 2 Extremitieson 01-04-20 Polyneuropathy, severe [facility] NVC 9-10 Nerveson 01-03-2025 Polyneuropathy, severe [facility] CBC AUTO DIFFon 10-13-2022 BASO # 0.1 103/ul Normal 0.0-0.1 [facility] Comment on above: Performed By: #### C BC #### [facility] [address] [address] [address] Gideon Pa Basophils/100 WBC (Bld) 0.7 % Normal 0.2-2.0 [facility] Comment on above: Performed By: #### C BC #### [facility] [address] [address] [address] Gideon Pa EO # 0.4 103/ul Normal 0.0-0.7 [facility] Comment on above: Performed By: #### C BC #### [facility] [address] [place] [address] Dr. Gideon Pa Eosinophils/100 WBC (Bld) 3.9 % Normal 0.9-7.0 [facility] Comment on above: Performed By: #### C BC #### [facility] [address] [place] [address] Dr. Gideon Pa Erythrocyte distribution width (RBC) [Ratio] 13.8 % Normal 11.0-15.0 [facility] Comment on above: Performed By: #### C BC #### [facility] [address] [place] [address] Dr. Gideon Pa Hematocrit (Bld) [Volume fraction] 51.7 % Normal 42.0-54.0 [facility] Comment on above: Performed By: #### C BC #### [facility] [address] [place] [address] Dr. Gideon Pa Hemoglobin (Bld) [Mass/Vol] 18.0 g/dL Normal 14.0-18.0 [facility] Comment on above: Performed By: #### C BC #### [facility] [address] [place] [address] Dr. Gideon Pa IG # 0.05 10e3/ul Critically high 0.00-0.03 [facility] Comment on above: Performed By: #### C BC #### [facility] [address] [place] [address] Dr. Gideon Pa IG % 0.5 % Normal 0.0-0.5 [facility] Comment on above: Performed By: #### C BC #### [facility] [address] [place] [address] Dr. Gideon Pa LYMPH # 2.4 103/ul Normal 1.2-3.8 [facility] Comment on above: Performed By: #### C BC #### [facility] [address] [place] [address] Dr. Gideon Pa Lymphocytes/100 WBC (Bld) 24.2 % Normal 20.5-60.0 [facility] Comment on above: Performed By: #### C BC #### [facility] [address] [place] [address] Dr. Gideon Pa MANUAL DIFF REQ NO Normal [facility] Comment on above: Performed By: #### C BC #### [facility] [address] [place] [address] Dr. Gideon Pa MCH (RBC) [Entitic mass] 29.5 pg Normal 25.9-34.0 [facility] Comment on above: Performed By: #### C BC #### [facility] [address] [place] [address] Dr. Gideon Pa MCHC (RBC) [Mass/Vol] 34.8 g/dL Normal 29.9-35.2 [facility] Comment on above: Performed By: #### C BC #### [facility] [address] [place] [address] Dr. Gideon Pa MCV (RBC) [Entitic vol] 84.6 fL Normal 80.0-94.0 [facility] Comment on above: Performed By: #### C BC #### [facility] [address] [place] [address] Dr. Gideon Pa MONO # 0.9 103/ul Critically high 0.3-0.8 [facility] Comment on above: Performed By: #### C BC #### [facility] [address] [place] [address] Dr. Gideon Pa Monocytes/100 WBC (Bld) 8.5 % Normal 1.7-12.0 [facility] Comment on above: Performed By: #### C BC #### [facility] [address] [place] [address] Dr. Gideon Pa NEUT # 6.3 103/ul Normal 1.4-6.5 [facility] Comment on above: Performed By: #### C BC #### [facility] [address] [place] [address] Dr. Gideon Pa Neutrophils/100 WBC (Bld) 62.2 % Normal 43.0-75.0 [facility] Comment on above: Performed By: #### C BC #### [facility] [address] [place] [address] Dr. Gideon Pa Platelet mean volume (Bld) [Entitic vol] 10.2 fL Normal 9.5-13.5 [facility] Comment on above: Performed By: #### C BC #### [facility] [address] [place] [address] Dr. Gideon Pa PLT 230 103/ul Normal 150-450 [facility] Comment on above: Performed By: #### C BC #### [facility] [address] [place] [address] Dr. Gideon Pa RBC 6.11 106/ul Critically high 4.70-6.10 [facility] Comment on above: Performed By: #### C BC #### [facility] [address] [place] [address] Dr. Gideon Pa WBC 10.1 103/ul Normal 4.0-11.0 [facility] Comment on above: Performed By: #### C BC #### [facility] [address] [place] [address] Dr. Gideon Pa FREE T3on 10-13-2022 FREE T3 2.98 pg/mlL Normal 2.18-3.98 [facility] Comment on above: Performed By: #### F T3, TSH, LIPID, T4, CMP #### [facility] [address] [place] [address] Dr. Gideon Pa GLYCOHEMOGLOBIN A1Con 2021 ADA RECOMMENDATION SEE BELOW Normal [facility] Comment on above: Result Comment: ADA RECOMMENDED LIMIT 4.0 - 6.0 ADA THERAPEUTIC TARGET < 7.0 ACTION SUGGESTED > 7.0 Performed By: #### A 1C #### [facility] [address] [address] [address] Gideon Pa Glucose [Mass/Vol] 240 mg/dL Normal [facility] Comment on above: Performed By: #### A 1C #### [facility] [address] [address] [address] Gideon Pa HbA1c (Bld) [Mass fraction] 10.0 % Critically high 4.5-6.2 [facility] Comment on above: Performed By: #### A 1C #### [facility] [address] [place] [address] Dr. Gideon Pa LIPID PROFILEon 10-13-2022 CHOL-HDL RATIO NORM SEE BELOW Normal [facility] Comment on above: Result Comment: 3.3 - 4.4 LOW RISK 4.4 - 7.1 AVERAGE RISK 7.1 - 11.0 MODERATE RISK >11.0 HIGH RISK Performed By: #### F T3, TSH, LIPID, T4, CMP #### [facility] [address] [address] [address] Gideon Pa Cholesterol [Mass/Vol] 150 mg/dL Normal <=200 [facility] Comment on above: Performed By: #### F T3, TSH, LIPID, T4, CMP #### [facility] [address] [address] [address] Gideon Pa Cholesterol in HDL [Mass/Vol] 30 mg/dL Critically low 40-60 [facility] Comment on above: Performed By: #### F T3, TSH, LIPID, T4, CMP #### [facility] [address] [address] [address] Gideon Pa Cholesterol in LDL [Mass/Vol] 81.0 mg/dL Normal [facility] Comment on above: Performed By: #### F T3, TSH, LIPID, T4, CMP #### [facility] [address] [address] [address] Gideon Pa Cholesterol.total/Cho lesterol in HDL [Mass ratio] 5.0 {ratio} Normal [facility] Comment on above: Performed By: #### F T3, TSH, LIPID, T4, CMP #### [facility] [address] [address] [address] Gideon Pa HDL NORMAL > or = 60 mg/dl - LOW CARDIOVASCULAR RISK <40 mg/dl - HIGH CARDIOVASCULAR RISK Normal [facility] Comment on above: Performed By: #### F T3, TSH, LIPID, T4, CMP #### [facility] [address] [address] [address] Gideon Pa LDL CALC NORMAL SEE BELOW Normal [facility] Comment on above: Result Comment: <100 mg/dl OPTIMAL 100 - 129 mg/dl NEAR OR ABOVE OPTIMAL 130 - 159 mg/dl BORDERLINE HIGH 160 - 189 mg/dl HIGH >190 mg/dl VERY HIGH Performed By: #### F T3, TSH, LIPID, T4, CMP #### [facility] [address] [address] [address] Gideon Pa Triglyceride [Mass/Vol] 195 mg/dL Critically high <=150 [facility] Comment on above: Performed By: #### F T3, TSH, LIPID, T4, CMP #### [facility] [address] [place] [address] Dr. Gideon Pa VLDL CALC 39.0 mg/dL Normal [facility] Comment on above: Performed By: #### F T3, TSH, LIPID, T4, CMP #### [facility] [address] [place] [address] Dr. Gideon Pa PROF 14(COMP METB)on 022 Albumin [Mass/Vol] 3.7 g/dL Normal 3.4-5.0 [facility] Comment on above: Performed By: #### F T3, TSH, LIPID, T4, CMP #### [facility] [address] [place] [address] Dr. Gideon Pa Albumin/Globulin [Mass ratio] 1.0 {ratio} Normal [facility] Comment on above: Performed By: #### F T3, TSH, LIPID, T4, CMP #### [facility] [address] [place] [address] Dr. Gideon Pa ALP [Catalytic activity/Vol] 131 U/L Critically high 46-116 [facility] Comment on above: Performed By: #### F T3, TSH, LIPID, T4, CMP #### [facility] [address] [place] [address] Dr. Gideon Pa ALT [Catalytic activity/Vol] 29 U/L Normal 16-63 [facility] Comment on above: Performed By: #### F T3, TSH, LIPID, T4, CMP #### [facility] [address] [place] [address] Dr. Gideon Pa Anion gap [Moles/Vol] 12.4 mmol/L Normal [facility] Comment on above: Performed By: #### F T3, TSH, LIPID, T4, CMP #### [facility] [address] [place] [address] Dr. Gideon Pa AST [Catalytic activity/Vol] 14 U/L Critically low 15-37 [facility] Comment on above: Performed By: #### F T3, TSH, LIPID, T4, CMP #### [facility] [address] [place] [address] Dr. Gideon Pa Bilirubin [Mass/Vol] 0.6 mg/dL Normal 0.2-1.0 [facility] Comment on above: Performed By: #### F T3, TSH, LIPID, T4, CMP #### [facility] [address] [place] [address] Dr. Gideon Pa Calcium [Mass/Vol] 8.9 mg/dL Normal 8.5-10.1 [facility] Comment on above: Performed By: #### F T3, TSH, LIPID, T4, CMP #### [facility] [address] [place] [address] Dr. Gideon Pa Chloride [Moles/Vol] 100 mmol/L Normal 98-107 [facility] Comment on above: Performed By: #### F T3, TSH, LIPID, T4, CMP #### [facility] [address] [place] [address] Dr. Gideon Pa CO2 [Moles/Vol] 26.8 mmol/L Normal 21.0-32.0 [facility] Comment on above: Performed By: #### F T3, TSH, LIPID, T4, CMP #### [facility] [address] [address] [address] Gideon Pa Creatinine [Mass/Vol] 0.73 mg/dL Normal 0.70-1.30 [facility] Comment on above: Performed By: #### F T3, TSH, LIPID, T4, CMP #### [facility] [address] [address] [address] Gideon Pa EGFR-AF GUINEAN >60 Normal >=60 [facility] Comment on above: Performed By: #### F T3, TSH, LIPID, T4, CMP #### [facility] [address] [place] [address] Dr. Gideon Pa EGFR-NON AF GUINEAN >60 Normal >=60 [facility] Comment on above: Performed By: #### F T3, TSH, LIPID, T4, CMP #### [facility] [address] [address] [address] Gideon Pa Globulin (S) [Mass/Vol] 3.8 g/dL Normal [facility] Comment on above: Performed By: #### F T3, TSH, LIPID, T4, CMP #### [facility] [address] [place] [address] Dr. Gideon Pa Glucose [Mass/Vol] 314 mg/dL Critically high 74-106 [facility] Comment on above: Performed By: #### F T3, TSH, LIPID, T4, CMP #### [facility] [address] [address] [address] Gideon Pa Potassium [Moles/Vol] 4.2 mmol/L Normal 3.5-5.1 [facility] Comment on above: Performed By: #### F T3, TSH, LIPID, T4, CMP #### [facility] [address] [place] [address] Dr. Gideon Pa Protein [Mass/Vol] 7.5 g/dL Normal 6.4-8.2 [facility] Comment on above: Performed By: #### F T3, TSH, LIPID, T4, CMP #### [facility] [address] [place] [address] Dr. Gideon Pa Sodium [Moles/Vol] 135 mmol/L Critically low 136-145 [facility] Comment on above: Performed By: #### F T3, TSH, LIPID, T4, CMP #### [facility] [address] [place] [address] Dr. Gideon Pa Urea nitrogen [Mass/Vol] 14.0 mg/dL Normal 7.0-18.0 [facility] Comment on above: Performed By: #### F T3, TSH, LIPID, T4, CMP #### [facility] [address] [place] [address] Dr. Gideon Pa Urea nitrogen/Creatinine [Mass ratio] 19.2 mg/mg Normal [facility] Comment on above: Performed By: #### F T3, TSH, LIPID, T4, CMP #### [facility] [address] [place] [address] Dr. Gideno Pa T4on 10-13-2022 T4 [Mass/Vol] 11.30 ug/dL Normal 4.50-12.[address] [facility] Comment on above: Performed By: #### F T3, TSH, LIPID, T4, CMP #### [facility] [address] [place] [address] Dr. Gideon Pa TSHon 10-13-2022 TSH 0.920 uIU/mL Normal 0.358-3.740 [facility] Comment on above: Performed By: #### F T3, TSH, LIPID, T4, CMP #### [facility] [address] [place] [address] Dr. Gideon Pa Encounters Encounter Date Encounter Type Care Provider Facility Start: 01-03-2025 End: 01-03-2025 [employer] Hunter Valencia DO Work Phone: [facility] Start: 01-03-2025 End: 01-03-2025 [employer] Hunter Valencia DO Work Phone: [facility] Start: 01-03-2025 End: 01-03-2025 Patient encounter procedure Hunter Valencia DO Work Phone: [facility] Comment on above: Paresthesia (Primary Dx) Start: 01-03-2025 End: 01-03-2025 ambulatory HUNTER VALENCIA Not Available Start: 11-26-2024 End: 11-26-2024 ambulatory Dalton Andrade MD Facility:[facility] Start: 10-13-2022 End: 10-14-[address] BROOKS PERALTA . Facility: Start: 08-26-[address] BROOKS PERALTA . Facili ty:[facility] Procedures Date Procedure Procedure Detail Performing Clinician Start: 01-03-2025 End: 01-03-2025 Needle emg ea extremty w/paraspinl area complete Hunter Valencia DO Work Phone: Start: 10-13-[address] RENETTA PERALTA . Comment on above: Performed By: #### P [facility] #### [facility] [address] [place] [address] Dr. Gideon Pa Plan of Treatment Date Care Activity Detail Author Start: 01-03-2025 End: 01-03-2025 Patient encounter procedure 01/03/2025 1:30 PM EST Procedure Visit [facility] [address] [place] [phone] Hunter Valencia DO [address] [place], [place] [id number] Arrived [facility] Comment on above: Arrived Start: 07-01-2024 Influenza vaccination Influenza Vacc ine (#1) [facility] Start: 1975 Screening for malign ant neoplasm of colon [facility] Payers Date Payer Category Payer Private Health Insurance 1975 Unknown [id number] [id number] 1974 Unknown [id number] 1974 Unknown [id number] 1974 Unknown [id number] [id number] [id number] 1959 Self-pay [id number] 1959 Unknown [id number] 1959 Unknown [id number] Social History Date Type Detail Facility Tobacco smoking stat [facility] Tobacco smoking consumption unknown [facility] Start: 1975 Sex assigned at Not on file [facility] Gender identity Not [facility] file [facility] History of Present illness Narrative 01-03-2025 Hunter Valencia DO - 01/03/2025 1:30 PM EST Note Date & Type Note Facility 01-03-2025 History of Presen t illness Narrative Images from the original note were not included. Reason for Appointment: [facility] Patient: Obi Cole : 1975 [facility] Computer: [email or web address] Referring Physician: Dr. Dalton Andrade EM[facility]: [facility] umbrella supervisor: Jaylen WATTS(R) Office Location: [facility] Reason for EMG: c/o numbness/tingling & pain in bilateral feet/legs, low back pain into bilateral hips R>L. Hx of DM. Not on blood thinners Comments: Procedure was explained to the patient & female classification inspector who expressed understanding. Patient appeared to have tolerated the test well despite some discomfort due to the nature of the test. documented in this encounter [facility] Evaluation note Note Date & Type Note Facility Evaluation note Diagnosis Paresthesia- Primary Disturbance of skin sensation documented in this encounter [facility] Reason for visit Narrative Other Medical (Routine) - Closed Note Date & Type Note Facility Reason for visit Narrative Specialty Diagnoses / Procedures Referred By Sean pickard Referred To Contact Neurology Diagnoses Other specified diabetes mellitus with diabetic neuropathy, unspecified ([facility]/H[facility]) Procedures ME NEEDLE EMG EA EXTREMTY W/PARASPINL AREA COMPLETE ME NERVE CONDUCTION STUDIES 9-10 STUDIES Dalton Andrade MD [address] [place] [address] Phone: tel: fax: Barrett Leger MD [address] [place] [address] Phone: tel: fax: Referral ID Status Reason Start Date Expiration Date V isits Requested Visits Authorized [id number] Closed Perform Procedure 11/27/2024 05/26/2025 1 1 [facility] Summary Purpose Family History No Family History Records FoundNo Family History Records FoundNo Family History Records Found Advance Directives No Advanced Directives Records FoundNo Advanced Directives Records FoundNo Advanced Directives Records Found Additional Source Comments (unrecognized sect ion and content) No Status Records FoundNo Status Records FoundNo Status Records Found INFORMATION SOURCE (unrecogn ized section and content) DATE CREATED AUTHOR 01/13/2023 [facility] DATE CREATED AUTHOR AUTHOR'S ORGANIZ ATION 12/02/2024 [facility] DATE CREATED AUTHOR AUTHOR'S ORGANIZ ATION 01/05/2025 [facility] EPIC Care Teams (unrecognized sec tion and content) Home Health Specialist Relationship Specialty Start Date End Date Brooks Peralta MD [address] [place] [phone] PCP - General Family Medicine 01/03/25 Dalton Andrade MD [address] [place] [address] Referring Physician Pain Medicine 11/27/24 Hunter Valencia DO [address] [place] [address] Referring Physician Neurology 01/03/25 Home Health Specialist Relationship Specialty Start Date End Date Brooks Peralta MD [address] [place] [phone] PCP - General Family Medicine 01/03/25 Dalton Andrade MD [address] [place] [address] Referring Physician Pain Medicine 11/27/24 Hunter Valencia DO [address] [address] Referring Physician Neurology 01/03/25 FOR RECORDS PERTAINING TO PATIENTS WHO ARE [...] BE BASED ON THE PRIMARY CLINICAL RECORDS. [employer] provides no warranty or guarantee of the accuracy or completeness of information in this document.
--- NOTE | 2025-01-10 14:01 | P.CN_ITS ---
Consult Note: HPI Data of Consult Patient: known to practice within the last 3 years Requesting Physician: Shira Reddy NP Primary Care Provider: Brooks Montejo MD Consult Narrative Reason for consult: f/u Narrative: Obi Rodríguez a pleasant 49 year old male presents for evaluation of chronic pain. longstanding hx of low back and bilateral foot pain. known hx of lumbar DDD per pt, recent EMG of BLE consistent with polyneuropathy. Pt reports pain today 5/10 in low back and BLE. Increased pain with all activity, improved with lying down and sitting. Patient currently utilizing lyrica 100mg TID and lodine 400mg BID with mild benefit without side effects. Pt noticing increased back pain since last visit. cc:: CC: Shira Reddy NP Review of Systems ROS Status of ROS 10 or more systems reviewed and unremark able except as noted in history and below Meds Home Medications and Allergies Home Medications ?Medication ?Instructions ?Recorded ?Confirmed ?Type etodolac 400 mg tablet 400 mg PO Q12H PRN pain 11/26/24 11/26/24 History glimepiride 2 mg tablet 1 mg PO DAILY 11/26/24 11/26/24 History lisinopril 30 mg tablet 30 mg PO DAILY 11/26/24 11/26/24 History metformin 500 mg tablet 500 mg PO BID 11/26/24 11/26/24 History pregabalin 150 mg capsule (Lyrica) 150 mg PO TID 11/26/24 11/26/24 History Allergies Allergy/AdvReac Type Severity Reaction Status Date / Time ANTIBIOTICS Allergy Nausea Uncoded 11/26/24 15:26 Exam Constitutional Documenting provider has reviewed patient's vital signs: yes Common normals: no apparent distress, oriented x3, healthy appearing, alert and well nourished General appearance: cooperative [facility] Common normals: normocephalic, hearing grossly normal bilaterally and moist oral mucous membranes Head and scalp: normocephalic Eye Common normals: PERRL Pupil: PERRL Neck & C-Spine Common normals: full ROM General: normal visual inspection Chest Common normals: inspection of chest normal Respiratory Common normals: normal respiratory effort, no retractions and no use of acce ssory muscles Back & Pelvis Lumbar spine/lower back: ROM limited, pain with ROM and lumbar spinal tenderness Other: decreased sensation to bilateral L5/S1 Extremity Common normals: normal to inspection and full ROM Neuro Common normals: oriented x3, CN's II-XII intact bilaterally, moves all extremities, no focal motor deficits, no sensory deficits noted and deep tendon reflexes 2+ bilaterally Sensorium/orientation: alert Motor exam: strength 5/5 throughout and no movement abnormalities noted Psych Common normals: mental status grossly normal, thought process normal, cooperative, affect normal, speech normal and activity/motor behavior normal Speech: normal speech Thought process: normal thought process Results Additional Findings Additional findings: If on a controlled substance or opioids, I have checked an [place] report on this patient and there are no aberrancies noted in the prescribing history.??If on a controlled substance or opioid a drug screen was completed and reviewed within the last year, and if there has not been a drug screen completed we ordered one today to monitor higher risk, state monitored pain medication use. As part of providing excellent, safe, comprehensive care, the following was completed at our patient's visit: 1. A medication reconciliation and review to ensure accurate knowledge of current/active medications, including asking our patients to inform us about any [id number] medications or herbal remedies/nutritional supplements/alternative remedies. 2. A review to specifically ensure our patients have had annual screening for screening for depression, screening for tobacco use, and screening for unhealthy alcohol use. For concerning screenings had a discussion with the patient, provided patient education, and recommended follow-up with primary care provider when appropriate. If patient noted with a risk of falling, they received education on strength, gait, and balance training to prevent future risk of falling. Portions of this note may have been carried over from the previous visit and updated as appropriate. Please note this office utilizes paper charting in addition to the electronic medical record. A list of current medications, vitals, and PMH is available there as the clinical staff outside of myself do not have access to [employer] charting during the clinic day operations. As part of providing quality comprehensive care the current medications, vitals, and PMH were reviewed in the paper chart. Assessment and Plan Assessment and Plan (1) Lumbar degenerative disc disease: (2) Lumbar radiculopathy: (3) Bilateral foot pain: (4) Painful diabetic neuropathy: Plan EMG reviewed with pt, long discussion regarding pts treatment options moving forward. Although EMG does not show a chronic severe radiculopathy, I do believe his low back pain and lumbar DDD contributes to his BLE pain. Will update lumbar MRI without contrast to assess low back pain secondary to lumbar DDD and lumbar radiculopathy unresponsive to greater than 6 weeks of PT/provider guided HEP, heat, ice, tylenol, and NSAIDs. continue current medications, tolerates well without side effects. f/u to review MRI. Will likely trial a lumbar CHRISTEN prior to spinal cord stimulation trial.
== END 2025-01-10 12:58 ==
LOC: PM 12:58
PROVIDERS: PCP Family Medicine; Visit Provider Nurse Practitioner
DX: M51.369 Other intervertebral disc degeneration, lumbar region without mention of lumbar back pain or lower extremity pain (principal); M54.16 Radiculopathy, lumbar region; M79.672 Pain in left foot; M79.671 Pain in right foot; E11.40 Type 2 diabetes mellitus with diabetic neuropathy, unspecified
CPT/HCPCS: G0463

== ENCOUNTER 2025-04-29 13:01 | Outpatient (RCR) | payer OTHER, SELFPAY | END 2025-07-05 06:51 | disposition home or self-care (01) | LOC: PT 13:01 | PROVIDERS: PCP Family Medicine; Visit Provider Family Medicine | DX: E11.42 Type 2 diabetes mellitus with diabetic polyneuropathy (principal); M79.671 Pain in right foot; M79.672 Pain in left foot | CPT/HCPCS: 97110; 97112; 97162 ==

== ENCOUNTER 2025-05-09 12:40 | Outpatient (OUT) | payer OTHER, SELFPAY ==
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
--- OUTSIDE RECORDS SUMMARY | 2025-04-25 07:34 | XMS_ITS ---
Author Organization The [facility] in [place] Address [address] [place] [address] Care Team Providers Care Relief Salesperson Name Role Phone Rah Montejo Primary Care Provider [phone] REASON FOR VISIT Dexcom G7 Medications Medication SIG (Take, Route, Fr equency, Duration) Notes Start Date End Date Status Dexcom G7 Sensor - as directed for 30 days 025 Active Dexcom G7 Transfer Clerk - as directed 04/25/2025 Active Encounters Encounter Location Date Provider Diagnosis [facility] [address] [facility] [place] [address] 04/25/2025 Rah Montejo Plan Of Treatment Medication Medication Name Sig Start Date Stop Date Notes Dexcom G7 Sensor - as directed for 30 days 04/25/2025 Dexcom G7 Transfer Clerk - as directed 04/25/2025 Progress Notes * Obi COLE CDOB:1974 (49 yo M)Acc No.[id number]:04/25/2025 Patient: Rayray PEÑAObi :1975 A ge:49 Y S ex:Male Address:[address] [place] [address] * Refills Start Dexcom G7 Transfer Clerk Device, -, 1, as directed, Refills=0 Start Dexcom G7 Sensor Miscellaneous, -, 3, as directed, 30 days, Refills=11 * true * Date: Generated for Printi ng/Faxing/eTransmitting on: 0 05/09/2025 12:42 PM EDT
--- OUTSIDE RECORDS SUMMARY | 2025-04-25 07:39 | XMS_ITS ---
Author Organization The [facility] in [place] Address [address] [place] [address] Care Team Providers Care Medical Billing Coder Name Role Phone UrielRah corbin Primary Care Provider [phone] Reason For Referral Diagnosis 1 Nevus (D22.9) Referral Organization [facility] Referring Provider First Name Rah Referring Provider Last Name Nikia Referring Provider [facility] icine Referred Provider Nba Clark Referred Provider Specialty Dermatology Referral Priority Routine REASON FOR VISIT Referral derm Encounters Encounter Location Date Provider Diagnosis [facility] [address] [place] [address] 04/25/2025 Rah Montejo Nevus D22.9 Assessments Encounter Date Diagnosis (ICD Code) Assessment Notes Treatment Notes Treatment Clinical Notes Section Notes 04/25/2025 Nevus (ICD-10 - D22.9) Plan Of Treatment Referrals Referral Date Details 04/25/2025 04/25/2025, Nba fam Progress Notes * Obi COLE CDOB:1974 (49 yo M)Acc No.[id number]:04/25/2025 Patient: Obi DOS SANTOS Ginny :1975 A ge:49 Y S ex:Male Address:[place] [address] Subjective: * Chief Complaints: * R eferral derm * Medical History: * Surgical History: * Hospitalization/Major Diagno stic Procedure: * Medications: Objective: * Vitals: * Physical Examination: Assessment: * Assessment: 1. N evus - D22.9 (Primary) Plan: * Treatment: * Procedure Codes: * true * Date: Generated for Devini vahe/Francisco/Theresaitting on: 0 05/09/2025 12:42 PM EDT Consultation Request Notes Referral Date Referring Provider Referred Provider Not es 04/25/2025 Rah Montejo Thomas
--- OUTSIDE RECORDS SUMMARY | 2025-05-09 12:42 | XMS_ITS | Clinical Summary ---
Author Organization [facility] Address [address] [place] [address] Care Team Providers Care Plaster Foreman Name Role Phone Dalton Andrade MD Unavailable [phone] Brooks Montejo MD Primary Care Provider + Hunter Valencia DO Unavailable + Social History Tobacco Use Types Packs/Day Years Used Date Smoking Tobacco: Never Assessed Sex and Gender Information Value Date Recorded Sex Assigned at Not on file Legal Sex Male 6:48 PM EDT Gender Identity Not on file Sexual Orientation Not on file Plan of Treatment Not on file Insurance MEDICAID [place] Care Teams Plaster Foreman Relationship Specialty Start Date End Date Brooks Montejo MD [address] [place], [place] [phone] PCP - General Family Medicine 01/03/25 Dalton Andrade MD [address] [place], [place] [phone] Referring Physician Pain Medicine 11/27/24 Hunter Valencia DO [address] [place] [address] Referring Physician Neurology 01/03/25
--- OUTSIDE RECORDS SUMMARY | 2025-05-09 12:42 | XMS_ITS | Patient Health Record ---
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 provided referral to pain management to see if he is a candidate for injection/nerve ablation. He is happy with this plan. 04/25/2025 Essential (primary) hypertension (ICD-10 - I10) 04/25/2025 Type 2 diabetes mellitus with hyperglycemia (ICD-10 - E11.65) 06/12/2024 Well adult (ICD-10 - Z00.00) 10/02/2024 Type 2 diabetes mellitus with diabetic polyneuropathy (ICD-10 - E11.42) 10/05/2024 Radiculopathy, lumbar region (ICD-10 - M54.16) 01/11/2025 Radiculopathy, lumbar region (ICD-10 - M54.16) 04/25/2025 Nevus (ICD-10 - D22.9) 08/08/2024 Type 2 diabetes mellitus with diabetic polyneuropathy (ICD-10 - E11.42) 04/25/2025 Type 2 diabetes mellitus with diabetic polyneuropathy (ICD-10 - E11.42) need pt 11/20/2024 Right foot pain (ICD-10 - M79.671) 11/09/2024 Peripheral vascular disease, unspecified (ICD-10 - I73.9) 05/22/2024 Type 2 diabetes mellitus with hyperglycemia (ICD-10 - E11.65) 06/20/2024 Type 2 diabetes mellitus with diabetic peripheral angiopathy without gangrene (ICD-10 - E11.51) 06/20/2024 Nicotine dependence, cigarettes, uncomplicated (ICD-10 - F17.210) 11/09/2024 Type 2 diabetes mellitus with diabetic peripheral angiopathy without gangrene (ICD-10 - E11.51) 04/25/2025 Male erectile dysfunction, unspecified (ICD-10 - N52.9) 04/25/2025 Nevus (ICD-10 - D22.9) need bx 06/20/2024 Primary osteoarthritis, left ankle and foot (ICD-10 - M19.072) Patient does have fairly significant arthritis noted on bilateral foot x-rays however I do not believe that this is his primary issue or a limb threatening problem like his peripheral arterial disease may be. I do not recommend surgery or any invasive treatment until we know his vascular status. We did discuss shoe modification as well as diabetic shoes with protective inserts. He has not had any help with OTC NSAIDs at this point. I would like to see how he does on the Lyrica prior to recommending any NSAIDs 06/20/2024 Primary osteoarthritis, right ankle and foot (ICD-10 - M19.071) 06/20/2024 Left foot pain (ICD-10 - M79.672) 06/20/2024 Right foot pain (ICD-10 - M79.671) Plan Of Treatment Pending Test Test Name Order Date HEMOGLOBIN A1C (GLYCO) 04/25/2025 LIPID PANEL (CHOL/TRIG/HDL/LDL) 04/25/20 25 XR Foot LT (3 views) * 11/20/2024 XR Foot LT (3 views) * 06/20/2024 XR Foot RT (3 views) * 11/20/2024 XR Foot RT (3 views) * 06/20/2024 PSA, TOTAL 05/22/2024 STOOL OCCULT BLOOD 04/25/2025 CBC AUTO DIFF 05/22/2024 GLYCOHEMOGLOBIN A1C 05/22/2024 LIPID PROFILE 05/22/2024 OCC BLD IMMUNOASSAY 05/22/2024 PROF 14(COMP METB) 05/22/2024 THYROID PROFILE WITH TSH 05/22/2024 THYROID PANEL (T4/TSH/FREE T3) XR foot LT min 3V 11/21/2024 XR foot RT min 3V 11/21/2024 PSA, SCREENING 04/25/2025 CT CHEST LOW DOSE (LDCT) 04/25/2025 CMP (COMP MET HENRY) w/eGFR CKD-EPI 2024 CBC WITH DIFF 04/25/2025 Insurance Providers Payer Name Payer Address Payer Phone Subscriber Number Group Number Insured Name Patient Relationship to Insured Coverage Start Date Coverage End Date [employer] [place] [employer] [address] [place] [address] [phone] [id number] Schoewe, Erin Self - patient is the insured Medications Administered Medication Instructions Date of Administration Dosage Notes Kenalog-40 09/06/2023 120 mg 120 Ketorolac Tromethamine 09/06/2023 60 mg 60 Orphenadrine Citrate 09/06/2023 60 mg 60 Medical (General) History Medical History History ICD Code Cellulitis L03.90 Diabetes mellitus E11.9 Essential hypertension I10 Impotence N52.9 Lumbar disc disease M51.9 Lumbar radiculopathy M54.16 Nocturia
--- OUTSIDE RECORDS SUMMARY | 2025-05-09 12:42 | XMS_ITS | Clinical Summary ---
Author Organization [facility] tem Address [id number] [address] [place] [address] Care Team Providers Care Stucco Laborer Name Role Phone Unavailable Primary Care Provider Unavailabl e Allergies Active Allergy Reactions Criticality Noted Date Comments Ciprofloxacin Nausea 06/30/2022 Medications lisinopriL (PRINIVIL,ZESTR IL) 30 mg tablet Take 30 mg by mouth in the morning. Active metFORMIN (GLUCOPHAGE) 500 mg tablet Take 1 tablet by mouth in the morning and 1 tablet before bedtime. Active Social History Tobacco Use Types Packs/Day Years Used Date Smoking Tobacco: Every Day Cigarettes Smokeless Tobacco: Never Alcohol Use Standard Drinks/Week Comments Not Currently 0 (1 standard drink = 0.6 oz pur e alcohol) Sex and Gender Information Value Date Recorded Sex Assigned at Not on file Legal Sex Male 8:07 PM EDT Gender Identity Not on file Sexual Orientation Not on file Last Filed Vital Signs Vital Sign Reading Time Taken Comments Blood Pressure 149/79 06/30/2022 10:30 PM EDT Pulse 91 06/30/2022 8:14 PM EDT Temperature 36.9 C (98.4 F) 06/30/2022 8:14 PM EDT Respiratory Rate 19 06/30/2022 8:14 PM EDT Oxygen Saturation 96% 06/30/2022 10:30 PM EDT Inhaled Oxygen Concentration - - Weight 93.9 kg (207 lb) 06/30/2022 8:14 PM EDT Height 182.9 cm (6') 06/30/2022 8:14 PM EDT Body Mass Index 28.07 06/30/2022 8:14 PM EDT Plan of Treatment Health Maintenance Due Date Last Done Comments Depression Screening 1986 Tobacco Screening 1986 DTaP,Tdap and Td Vaccines (1 - Tdap) 1993 Adult BMI Screening 06/30/2023 06/30/2022 Zoster (Shingles) Vaccine (1 of 2) 2024 Influenza Vaccine 07/01/2025 Medical Devices Not on file 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
--- NOTE | 2025-05-09 12:43 | MR_ITS ---
The [address] [address] Patient Name: ERIN COEL MRN: [id number] date: 1975 Sex: M Assigned Patient Location: MRI Current Patient Location: Accession/Order Number: [id number] Exam Date: 05/09/2025 20:32 Report Date: 05/09/2025 20:41 At the request of: ANITA HIGH NP Procedure: MR lumbar spine wo con MRI lumbar spine performed without contrast INDICATION: Lumbar stenosis with neurogenic claudication bilateral radiculopathy COMPARISON: None FINDINGS: 5 lumbar type vertebral bodies. Congenitally short pedicles. There is evidence of mild levocurvature. Unremarkable bone marrow signal. Mild superior endplate depression L4 . There is minimal anterolisthesis L4 on L5 noted measuring 3 mm. Mild intervertebral space narrowing L4-5 and less so L3-4. Multilevel facet arthropathy. Conus medullaris terminates normally at L1-L2. Nerve roots of cauda equina are unremarkable. Paraspinal soft tissues are unremarkable. T12-L1: Minor broad-based bulge with facet arthropathy. Intermargin plate spurring. No significant canal or neural from narrowing identified. L2: Broad-based disc bulge with facet arthropathy. Canal neural foramen are patent. L2-L3: Circumferential disc bulge with facet arthropathy and trace right-sided facet joint effusion. Mild canal narrowing. Mild bilateral neural foraminal narrowing. L3-L4: Circumferential disc bulge with moderate facet arthropathy. Congenitally short pedicles noted. Moderate central canal narrowing. [id number]-[id number] right moderate left neural foraminal narrowing. L4-5: 3 mm anterolisthesis with uncovering of the posterior disc. There is a circumferential disc bulge with advanced facet arthropathy. There is moderate to severe central canal stenosis with crowding left subarticular zone. Additionally, there is bilateral foraminal encroachment moderate severe right and severe left. Please correlate with left L4 and L5 radiculopathy and correlate with possible right L3 radiculopathy. L5 S1: Minimal disc desiccation. Moderate facet arthropathy. Canal patent. Minimal foraminal encroachment caused by the posterior element degenerative changes. MR/MR lumbar spine wo con IMPRESSION: Multilevel degenerative changes most notably at L4-5 with moderate severe central canal stenosis and left subarticular recess narrowing. Additionally there is severe left and moderate severe right foraminal narrowing, correlate with left L4 and L5 radiculopathy and right L4 radiculopathy. 3 mm anterolisthesis L4 on L5 likely caused by the advanced facet arthropathy at this level. Impression dictated by: Donal Livingston M.D. 05/09/2025 8:41 PM Dictation Location: [place] [address] Electronically authenticated by: [id number] Y Date: 05/09/2025 20:41
== END 2025-05-09 12:41 | disposition home or self-care (01) ==
LOC: MRI 12:40
PROVIDERS: PCP Family Medicine; Visit Provider Nurse Practitioner
DX: M48.062 Spinal stenosis, lumbar region with neurogenic claudication (principal); M51.369 Other intervertebral disc degeneration, lumbar region without mention of lumbar back pain or lower extremity pain; M54.16 Radiculopathy, lumbar region
CPT/HCPCS: 72148

== ENCOUNTER 2025-05-15 15:10 | Outpatient (OUT) | payer OTHER, SELFPAY ==
--- OUTSIDE RECORDS SUMMARY | 2025-04-25 07:34 | XMS_ITS ---
Author Organization The [facility] in [place] Address [address] [place] [address] Care Team Providers Care Project Finance Analyst Name Role Phone Rah Montejo Primary Care Provider REASON FOR VISIT Dexcom G7 Medications Medication SIG (Take, Route, Fr equency, Duration) Notes Start Date End Date Status Dexcom G7 Sensor - as directed for 30 days 025 Active Dexcom G7 Flight Software Test Engineer - as directed 04/25/2025 Active Encounters Encounter Location Date Provider Diagnosis [facility] [address] [place] [address] 04/25/2025 Rah Montejo Plan Of Treatment Medication Medication Name Sig Start Date Stop Date Notes Dexcom G7 Sensor - as directed for 30 days 04/25/2025 Dexcom G7 Flight Software Test Engineer - as directed 04/25/2025 Progress Notes * Obi COLE CDOB:1974 (49 yo M)Acc No.[id number]:04/25/2025 Patient: Rayray PEÑAObi :1975 A ge:49 Y S ex:Male Address:[address] [place] [address] * Refills Start Dexcom G7 Flight Software Test Engineer Device, -, 1, as directed, Refills=0 Start Dexcom G7 Sensor Miscellaneous, -, 3, as directed, 30 days, Refills=11 * true * Date: Generated for Printi ng/Faxing/eTransmitting on: 0 05/15/2025 03:13 PM EDT
--- OUTSIDE RECORDS SUMMARY | 2025-04-25 07:39 | XMS_ITS ---
Author Organization The [facility] in [place] Address [address] [place] [address] Care Team Providers Care Transfer Driver Name Role Phone UrielRah corbin Primary Care Provider Reason For Referral Diagnosis 1 Nevus (D22.9) Referral Organization [facility] Referring Provider First Name Rah Referring Provider Last Name Nikia Referring Provider [facility] icine Referred Provider Nba Clark Referred Provider Specialty Dermatology Referral Priority Routine REASON FOR VISIT Referral derm Encounters Encounter Location Date Provider Diagnosis [facility] [address] [facility] [place] [place] [address] 04/25/2025 Rah Montejo Nevus D22.9 Assessments Encounter Date Diagnosis (ICD Code) Assessment Notes Treatment Notes Treatment Clinical Notes Section Notes 04/25/2025 Nevus (ICD-10 - D22.9) Plan Of Treatment Referrals Referral Date Details 04/25/2025 04/25/2025, Nba fam Progress Notes * Obi COLE CDOB:1974 (49 yo M)Acc No.[id number]:04/25/2025 Patient: Obi DOS SANTOS Ginny :1975 A ge:49 Y S ex:Male Address:[place] [address] Subjective: * Chief Complaints: * R eferral derm * Medical History: * Surgical History: * Hospitalization/Major Diagno stic Procedure: * Medications: Objective: * Vitals: * Physical Examination: Assessment: * Assessment: 1. N evus - D22.9 (Primary) Plan: * Treatment: * Procedure Codes: * true * Date: Generated for Devini vahe/Francisco/Theresaitting on: 0 05/15/2025 03:13 PM EDT Consultation Request Notes Referral Date Referring Provider Referred Provider Not es 04/25/2025 Rah Montejo Thomas
--- OUTSIDE RECORDS SUMMARY | 2025-05-12 12:20 | XMS_ITS ---
Author Organization The [facility] in [place] Address [address] [place] [address] Care Team Providers Care Lip And Gate Builder Name Role Phone Rah Montejo Primary Care Provider REASON FOR VISIT MRI Results Encounters Encounter Location Date Provider Diagnosis [facility] [address] [facility] [place] [address] 05/12/2025 Rah Montejo Plan Of Treatment No Information Progress Notes * Obi COLE CDOB:1974 (49 yo M)Acc No.[id number]:05/12/2025 Patient: Rayray PEÑAObi :1975 A ge:49 Y S ex:Male Address:[address] [place] [address] * true * Date: Generated for Printi ng/Faxing/eTransmitting on: 0 05/15/2025 03:13 PM EDT
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
--- OUTSIDE RECORDS SUMMARY | 2025-05-15 15:13 | XMS_ITS | Clinical Summary ---
Author Organization [employer] [facility] tem Address [id number] [address] [place] [address] Care Team Providers Care Fire Management Technician Name Role Phone Unavailable Primary Care Provider [...] 07/01/2025 Medical Devices Not on file Insurance WORKERS COMPENSATION
--- NOTE | 2025-05-15 15:38 | PM.CN ---
Consult Note: HPI Data of Consult Patient: known to practice within the last 3 years Requesting Physician: Shira Reddy NP Primary Care Provider: Brooks Montejo MD Consult Narrative Reason for consult: f/u Narrative: Obi Rodríguez a pleasant 49 year old male presents for evaluation of chronic pain. longstanding hx of low back and bilateral foot pain. known hx of lumbar DDD per pt, recent EMG of BLE consistent with polyneuropathy. Pt reports pain today 2/10 in low back and BLE increasing to 10/10. Increased pain with all activity, improved with lying down and sitting. recent lumbar MRI with results below. cc:: CC: Shira Reddy NP Review of Systems ROS Status of ROS 10 or more systems reviewed and unremarkable except as noted in history and below Meds Home Medications and Allergies Home Medications �Medication �Instructions �Recorded �Confirmed �Type etodolac 400 mg tablet 400 mg PO Q12H PRN pain 11/26/24 11/26/24 History glimepiride 2 mg tablet 1 mg PO DAILY 11/26/24 11/26/24 History lisinopril 30 mg tablet 30 mg PO DAILY 11/26/24 11/26/24 History metformin 500 mg tablet 500 mg PO BID 11/26/24 11/26/24 History pregabalin 150 mg capsule (Lyrica) 150 mg PO TID 11/26/24 11/26/24 History pregabalin 150 mg capsule (Lyrica) 150 mg PO TID #90 caps 01/31/25 Rx Allergies Allergy/AdvReac Type Severity Reaction Status Date / Time ANTIBIOTICS Allergy Nausea Uncoded 11/26/24 15:26 Exam Constitutional Documenting provider has reviewed patient's vital signs: yes Common normals: no apparent distress, oriented x3, healthy appearing, alert and well nourished General appearance: cooperative [facility] Common normals: normocephalic, hearing grossly normal bilaterally and moist oral mucous membranes Head and scalp: normocephalic Eye Common normals: PERRL Pupil: PERRL Neck & C-Spine Common normals: full ROM General: normal visual inspection Chest Common normals: inspection of chest normal Respiratory Common normals: normal respiratory effort, no retractions and no use of accessory muscles Back & Pelvis Lumbar spine/lower back: ROM limited, pain with ROM and lumbar spinal tenderness Other: decreased sensation to bilateral L4,5/S1 Extremity Common normals: full ROM Other: chronic vascular discoloration to BLE Neuro Common normals: oriented x3, CN's II-XII intact bilaterally, no focal motor deficits and deep tendon reflexes 2+ bilaterally Sensorium/orientation: alert Motor exam: strength 5/5 throughout and no movement abnormalities noted Psych Common normals: mental status grossly normal, thought process normal, cooperative, affect normal, speech normal and activity/motor behavior normal Speech: normal speech Thought process: normal thought process Results Imaging lumbar MRI: Attestation: I have reviewed the pertinent imaging results. Radiologist's impression: 5 lumbar type vertebral bodies. Congenitally short pedicles. There is evidence of mild levocurvature. Unremarkable bone marrow signal. Mild superior endplate depression L4 . There is minimal anterolisthesis L4 on L5 noted measuring 3 mm. Mild intervertebral space narrowing L4-5 and less so L3-4. Multilevel facet arthropathy. Conus medullaris terminates normally at L1-L2. Nerve roots of cauda equina are unremarkable. Paraspinal soft tissues are unremarkable. T12-L1: Minor broad-based bulge with facet arthropathy. Intermargin plate spurring. No significant canal or neural from narrowing identified. L2: Broad-based disc bulge with facet arthropathy. Canal neural foramen are patent. L2-L3: Circumferential disc bulge with facet arthropathy and trace right-sided facet joint effusion. Mild canal narrowing. Mild bilateral neural foraminal narrowing. L3-L4: Circumferential disc bulge with moderate facet arthropathy. Congenitally short pedicles noted. Moderate central canal narrowing. Pomo-fc-luwlsxvm right moderate left neural foraminal narrowing. L4-5: 3 mm anterolisthesis with uncovering of the posterior disc. There is a circumferential disc bulge with advanced facet arthropathy. There is moderate to severe central canal stenosis with crowding left subarticular zone. Additionally, there is bilateral foraminal encroachment moderate severe right and severe left. Please correlate with left L4 and L5 radiculopathy and correlate with possible right L3 radiculopathy. L5 S1: Minimal disc desiccation. Moderate facet arthropathy. Canal patent. Minimal foraminal encroachment caused by the posterior element degenerative changes. Additional Findings Additional findings: If on a controlled substance or opioids, I have checked an [place] report on this patient and there are no aberrancies noted in the prescribing history.��If on a controlled substance or opioid a drug screen was completed and reviewed within the last year, and if there has not been a drug screen completed we ordered one today to monitor higher risk, state monitored pain medication use. As part of providing excellent, safe, comprehensive care, the following was completed at our patient's visit: 1. A medication reconciliation and review to ensure accurate knowledge of current/active medications, including asking our patients to inform us about any xtjb-esb-irrlqtt medications or herbal remedies/nutritional supplements/alternative remedies. 2. A review to specifically ensure our patients have had annual screening for screening for depression, screening for tobacco use, and screening for unhealthy alcohol use. For concerning screenings had a discussion with the patient, provided patient education, and recommended follow-up with primary care provider when appropriate. If patient noted with a risk of falling, they received education on strength, gait, and balance training to prevent future risk of falling. Portions of this note may have been carried over from the previous visit and updated as appropriate. Please note this office utilizes paper charting in addition to the electronic medical record. A list of current medications, vitals, and PMH is available there as the clinical staff outside of myself do not have access to [employer] charting during the clinic day operations. As part of providing quality comprehensive care the current medications, vitals, and PMH were reviewed in the paper chart. Assessment and Plan Assessment and Plan (1) Lumbar stenosis with neurogenic claudication: Assessment and Plan: The patient has had over 3 months of moderate to severe low back and BLE pain with functional impairment and inadequate response to conservative care including NSAIDS (unless there are contraindication such as concurrent blood thinners), multiple oral or topical pain medications, and home exercise program/physical therapy.� Patient has completed >6 weeks of guided home exercise program and/or formal physical therapy program without relief of their symptoms.� The Oswestry Disability Index was completed, and the patient scored a 40%.� The patient noted the following:�� moderate to severe pain impacting ADLs, sitting, standing, walking, sleeping, social life, travel We discussed the risks and benefits of the procedure with the patient, and we are NOT planning on using sedation as outlined in the guidelines from Medicare unless there is a documented reason that sedation would be strongly recommended.��The procedure will be completed with fluoroscopic guidance.� (2) Painful diabetic neuropathy: (3) Lumbar degenerative disc disease: (4) Lumbar radiculopathy: (5) Bilateral foot pain: Plan lumbar mri reviewed with pt, proceed with bilateral L4-5 TFESI under fluoroscopy at this time for lumbar stenosis with NC long-term plan to refer to NS for evaluation of scs trial for painful DPN and lumbar stenosis with NC continue medication management through PCP, was recently started on duloxetine f/u 2 weeks after injection
== END 2025-05-15 15:11 | disposition home or self-care (01) ==
LOC: PM 15:11
PROVIDERS: PCP Family Medicine; Visit Provider Nurse Practitioner
DX: M48.062 Spinal stenosis, lumbar region with neurogenic claudication (principal); E11.40 Type 2 diabetes mellitus with diabetic neuropathy, unspecified; M51.369 Other intervertebral disc degeneration, lumbar region without mention of lumbar back pain or lower extremity pain; M54.16 Radiculopathy, lumbar region; M79.672 Pain in left foot; M79.671 Pain in right foot
CPT/HCPCS: G0463

== ENCOUNTER 2025-05-22 13:30 | Outpatient (OUT) | payer OTHER, SELFPAY ==
--- OUTSIDE RECORDS SUMMARY | 2025-04-25 07:34 | XMS_ITS ---
Author Organization The [facility] in [place] Address [address] [place] [address] Care Team Providers Care Commercial Lines Manager Name Role Phone Rah Montejo Primary Care Provider [phone] REASON FOR VISIT Dexcom G7 Medications Medication SIG (Take, Route, Fr equency, Duration) Notes Start Date End Date Status Dexcom G7 Sensor - as directed for 30 days 025 Active Dexcom G7 Milk Handler - as directed 04/25/2025 Active Encounters Encounter Location Date Provider Diagnosis [facility] [address] [facility] [place] [address] 04/25/2025 Rah Montejo Plan Of Treatment Medication Medication Name Sig Start Date Stop Date Notes Dexcom G7 Sensor - as directed for 30 days 04/25/2025 Dexcom G7 Milk Handler - as directed 04/25/2025 Progress Notes * Obi COLE CDOB:1974 (49 yo M)Acc No.[id number]:04/25/2025 Patient: Rayray PEÑAObi :1975 A ge:49 Y S ex:Male Address:[address] [place] [address] * Refills Start Dexcom G7 Milk Handler Device, -, 1, as directed, Refills=0 Start Dexcom G7 Sensor Miscellaneous, -, 3, as directed, 30 days, Refills=11 * true * Date: Generated for Printi ng/Faxing/eTransmitting on: 0 05/22/2025 01:32 PM EDT
--- OUTSIDE RECORDS SUMMARY | 2025-04-25 07:39 | XMS_ITS ---
Author Organization The [facility] in [place] Address [address] [place] [address] Care Team Providers Care General Lot Attendant Name Role Phone UrielRah corbin Primary Care Provider [phone] Reason For Referral Diagnosis 1 Nevus (D22.9) Referral Organization [facility] Referring Provider First Name Rah Referring Provider Last Name Nikia Referring Provider [facility] icine Referred Provider Nba Clark Referred Provider Specialty Dermatology Referral Priority Routine REASON FOR VISIT Referral derm Encounters Encounter Location Date Provider Diagnosis [facility] [address] [facility] [place] [address] 04/25/2025 Rah Montejo Nevus D22.9 Assessments Encounter Date Diagnosis (ICD Code) Assessment Notes Treatment Notes Treatment Clinical Notes Section Notes 04/25/2025 Nevus (ICD-10 - D22.9) Plan Of Treatment Referrals Referral Date Details 04/25/2025 04/25/2025, Nba fam Progress Notes * Obi COLE CDOB:1974 (49 yo M)Acc No.[id number]:04/25/2025 Patient: Obi DOS SANTOS Ginny :1975 A ge:49 Y S ex:Male Address:[place] [address] Subjective: * Chief Complaints: * R eferral derm * Medical History: * Surgical History: * Hospitalization/Major Diagno stic Procedure: * Medications: Objective: * Vitals: * Physical Examination: Assessment: * Assessment: 1. N evus - D22.9 (Primary) Plan: * Treatment: * Procedure Codes: * true * Date: Generated for Heather cotter/Francisco/Theresaitting on: 0 05/22/2025 01:32 PM EDT Consultation Request Notes Referral Date Referring Provider Referred Provider Not es 04/25/2025 Rah Montejo Thomas
--- OUTSIDE RECORDS SUMMARY | 2025-05-12 12:20 | XMS_ITS ---
Author Organization The [facility] in [place] Address [address] [place] [address] Care Team Providers Care Permanent Mold Supervisor Name Role Phone Rah Montejo Primary Care Provider [phone] REASON FOR VISIT MRI Results Encounters Encounter Location Date Provider Diagnosis [facility] [address] [facility] [facility] [place] [address] 05/12/2025 Rah Montejo Plan Of Treatment No Information Progress Notes * Obi COLE CDOB:1974 (49 yo M)Acc No.[id number]:05/12/2025 Patient: Rayray PEÑAObi :1975 A ge:49 Y S ex:Male Address:[address] [place] [address] * true * Date: Generated for Printi ng/Faxing/eTransmitting on: 0 05/22/2025 01:31 PM EDT
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
--- OUTSIDE RECORDS SUMMARY | 2025-05-22 13:32 | XMS_ITS | Clinical Summary ---
Author Organization [employer] [facility] tem Address [id number] [address] 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
--- NOTE | 2025-05-22 13:34 | CT_ITS ---
The [address] [address] Patient Name: ERIN COLE MRN: [id number] date: 1975 Sex: M Assigned Patient Location: CT Current Patient Location: LAB Accession/Order Number: [id number] Exam Date: 05/22/2025 14:18 Report Date: 05/22/2025 14:22 At the request of: JUAN LUIS PERALTA MD Procedure: CT lung screening low-dose CT CHEST WITHOUT CONTRAST, LOW DOSE SCREENING: CLINICAL DATA: A 49-year old current smoker. COMPARISON: None TECHNIQUE: Noncontrast axial CT scan images of the chest were obtained under the low dose screening CT protocol. Coronal and sagittal reconstructed images were also submitted. FINDINGS: Mediastinum : Suboptimal evaluation due to low-dose technique. Thoracic aorta appears normal in caliber. Pulmonary trunk appears nondilated. No pericardial effusion. No lymphadenopathy. The esophagus is grossly unremarkable. Lungs: No focal consolidation, pneumothorax or pleural effusion. Trachea and distal airways appear patent. Emphysema. Scattered areas of lung scarring. Mild bronchial wall thickening. 3 mm noncalcified pulmonary nodule right upper lobe series 4 image 57. Postinflammatory subpleural nodularity involving the right lower lobe. Upper abdomen: No acute findings. Bony thorax and chest wall: Soft tissues surrounding the chest wall demonstrate no acute findings. Osseous structures demonstrate degenerative change. CT/CT lung screening low-dose IMPRESSION: 3 MM NONCALCIFIED PULMONARY NODULE RIGHT UPPER LOBE. LUNG - RADS Version 1.0 Assessment: Category 2, Benign appearance or behavior. Management: Continue annual lung screening with LDCT in 12 months. Impression dictated by: Ronny Darby Jr., D.O. 05/22/2025 2:22 PM Dictation Location: [place] [address] Electronically authenticated by: [id number] Y Date: 05/22/2025 14:22
--- OUTSIDE RECORDS SUMMARY | 2025-05-22 13:43 | XMS_ITS | CCD ---
Author Organization [facility] Care Team Providers Care Branding Machine Operator Name Role Phone KATHRYN ., DR MCKNIGHT Admitting Unavailable HOY ., DR MCKNIGHT Attending Unavailable HOY ., DR MCKNIGHT Primary Care Unavailable HOY ., DR MCKNIGHT Admitting Unavailable HOY ., DR MCKNIGHT Attending Unavailable HOY ., DR MCKNIGHT Primary Care Unavailable HOY ., DR MCKNIGHT Consulting Unavailable Raymond YAO, Andrius Chase Attending Unavailable Raymond YAO, Andrius Unavailable Brooks Peralta MD Primary Care Provider [phone] Hunter Valencia DO Unavailable HUNTER VALENCIA [...] 10-13-2022 BASO # 0.1 103/ul Normal 0.0-0.1 [facility] Comment on above: Performed By: #### C BC #### [facility] [address] [address] [address] Gideon Pa Basophils/100 WBC (Bld) 0.7 % Normal 0.2-2.0 [facility] Comment on above: Performed By: #### C BC #### [facility] [address] [address] [address] Gideon Pa EO # 0.4 103/ul Normal 0.0-0.7 [facility] Comment on above: Performed By: #### C BC #### [facility] [address] [place] [address] Dr. Gideon Pa Eosinophils/100 WBC (Bld) 3.9 % Normal 0.9-7.0 [facility] Comment on above: Performed By: #### C BC #### [facility] [address] [place] [address] Dr. Gideon Pa Erythrocyte distribution width (RBC) [Ratio] 13.8 % Normal 11.0-15.0 [facility] Comment on above: Performed By: #### C BC #### [facility] [address] [place] [address] Dr. Gideon Pa Hematocrit (Bld) [Volume fraction] 51.7 % Normal 42.0-54.0 [facility] Comment on above: Performed By: #### C BC #### [facility] [address] [place] [address] Dr. Gideon Pa Hemoglobin (Bld) [Mass/Vol] 18.0 g/dL Normal 14.0-18.0 [facility] Comment on above: Performed By: #### C BC #### [facility] [address] [place] [address] Dr. Gideon Pa IG # 0.05 10e3/ul Critically high 0.00-0.03 [facility] Comment on above: Performed By: #### C BC #### [facility] [address] [place] [address] Dr. Gideon Pa IG % 0.5 % Normal 0.0-0.5 [facility] Comment on above: Performed By: #### C BC #### [facility] [address] [place] [address] Dr. Gideon Pa LYMPH # 2.4 103/ul Normal 1.2-3.8 [facility] Comment on above: Performed By: #### C BC #### [facility] [address] [place] [address] Dr. Gideon Pa Lymphocytes/100 WBC (Bld) 24.2 % Normal 20.5-60.0 [facility] Comment on above: Performed By: #### C BC #### [facility] [address] [place] [address] Dr. Gideon Pa MANUAL DIFF REQ NO Normal [facility] Comment on above: Performed By: #### C BC #### [facility] [address] [place] [address] Dr. Gideon Pa MCH (RBC) [Entitic mass] 29.5 pg Normal 25.9-34.0 [facility] Comment on above: Performed By: #### C BC #### [facility] [address] [place] [address] Dr. Gideon Pa MCHC (RBC) [Mass/Vol] 34.8 g/dL Normal 29.9-35.2 [facility] Comment on above: Performed By: #### C BC #### [facility] [address] [place] [address] Dr. Gideon Pa MCV (RBC) [Entitic vol] 84.6 fL Normal 80.0-94.0 [facility] Comment on above: Performed By: #### C BC #### [facility] [address] [place] [address] Dr. Gideon Pa MONO # 0.9 103/ul Critically high 0.3-0.8 [facility] Comment on above: Performed By: #### C BC #### [facility] [address] [place] [address] Dr. Gideon Pa Monocytes/100 WBC (Bld) 8.5 % Normal 1.7-12.0 [facility] Comment on above: Performed By: #### C BC #### [facility] [address] [place] [address] Dr. Gideon Pa NEUT # 6.3 103/ul Normal 1.4-6.5 [facility] Comment on above: Performed By: #### C BC #### [facility] [address] [place] [address] Dr. Gideon Pa Neutrophils/100 WBC (Bld) 62.2 % Normal 43.0-75.0 [facility] Comment on above: Performed By: #### C BC #### [facility] [address] [place] [address] Dr. Gideon Pa Platelet mean volume (Bld) [Entitic vol] 10.2 fL Normal 9.5-13.5 [facility] Comment on above: Performed By: #### C BC #### [facility] [address] [place] [address] Dr. Gideon Pa PLT 230 103/ul Normal 150-450 [facility] Comment on above: Performed By: #### C BC #### [facility] [address] [place] [address] Dr. Gideon Pa RBC 6.11 106/ul Critically high 4.70-6.10 [facility] Comment on above: Performed By: #### C BC #### [facility] [address] [place] [address] Dr. Gideon Pa WBC 10.1 103/ul Normal 4.0-11.0 [facility] Comment on above: Performed By: #### C BC #### [facility] [address] [place] [address] Dr. Gideon Pa FREE T3on 10-13-2022 FREE T3 2.98 pg/mlL Normal 2.18-3.98 [facility] Comment on above: Performed By: #### F T3, TSH, LIPID, T4, CMP #### [facility] [address] [place] [address] Dr. Gideon Pa GLYCOHEMOGLOBIN A1Con 2021 ADA RECOMMENDATION SEE BELOW Normal [facility] Comment on above: Result Comment: ADA RECOMMENDED LIMIT 4.0 - 6.0 ADA THERAPEUTIC TARGET < 7.0 ACTION SUGGESTED > 7.0 Performed By: #### A 1C #### [facility] [address] [address] [address] Gideon Pa Glucose [Mass/Vol] 240 mg/dL Normal [facility] Comment on above: Performed By: #### A 1C #### [facility] [address] [address] [address] Gideon Pa HbA1c (Bld) [Mass fraction] 10.0 % Critically high 4.5-6.2 [facility] Comment on above: Performed By: #### A 1C #### [facility] [address] [place] [address] Dr. Gideon aP LIPID PROFILEon 10-13-2022 CHOL-HDL RATIO NORM SEE BELOW Normal [facility] Comment on above: Result Comment: 3.3 - 4.4 LOW RISK 4.4 - 7.1 AVERAGE RISK 7.1 - 11.0 MODERATE RISK >11.0 HIGH RISK Performed By: #### F T3, TSH, LIPID, T4, CMP #### [facility] [address] [address] [address] Gideon Pa Cholesterol [Mass/Vol] 150 mg/dL Normal <=200 [facility] Comment on above: Performed By: #### F T3, TSH, LIPID, T4, CMP #### [facility] [address] [address] [address] Gideon Pa Cholesterol in HDL [Mass/Vol] 30 mg/dL Critically low 40-60 [facility] Comment on above: Performed By: #### F T3, TSH, LIPID, T4, CMP #### [facility] [address] [address] [address] Gideon Pa Cholesterol in LDL [Mass/Vol] 81.0 mg/dL Normal [facility] Comment on above: Performed By: #### F T3, TSH, LIPID, T4, CMP #### [facility] [address] [address] [address] Gideon Pa Cholesterol.total/Cho lesterol in HDL [Mass ratio] 5.0 {ratio} Normal [facility] Comment on above: Performed By: #### F T3, TSH, LIPID, T4, CMP #### [facility] [address] [address] [address] Gideon Pa HDL NORMAL > or = 60 mg/dl - LOW CARDIOVASCULAR RISK <40 mg/dl - HIGH CARDIOVASCULAR RISK Normal [facility] Comment on above: Performed By: #### F T3, TSH, LIPID, T4, CMP #### [facility] [address] [address] [address] Gideon Pa LDL CALC NORMAL SEE BELOW Normal [facility] Comment on above: Result Comment: <100 mg/dl OPTIMAL 100 - 129 mg/dl NEAR OR ABOVE OPTIMAL 130 - 159 mg/dl BORDERLINE HIGH 160 - 189 mg/dl HIGH >190 mg/dl VERY HIGH Performed By: #### F T3, TSH, LIPID, T4, CMP #### [facility] [address] [address] [address] Gideon Pa Triglyceride [Mass/Vol] 195 mg/dL Critically high <=150 [facility] Comment on above: Performed By: #### F T3, TSH, LIPID, T4, CMP #### [facility] [address] [place] [address] Dr. Gideon Pa VLDL CALC 39.0 mg/dL Normal [facility] Comment on above: Performed By: #### F T3, TSH, LIPID, T4, CMP #### [facility] [address] [place] [address] Dr. Gideon Pa PROF 14(COMP METB)on 022 Albumin [Mass/Vol] 3.7 g/dL Normal 3.4-5.0 [facility] Comment on above: Performed By: #### F T3, TSH, LIPID, T4, CMP #### [facility] [address] [place] [address] Dr. Gideon Pa Albumin/Globulin [Mass ratio] 1.0 {ratio} Normal [facility] Comment on above: Performed By: #### F T3, TSH, LIPID, T4, CMP #### [facility] [address] [place] [address] Dr. Gideon Pa ALP [Catalytic activity/Vol] 131 U/L Critically high 46-116 [facility] Comment on above: Performed By: #### F T3, TSH, LIPID, T4, CMP #### [facility] [address] [place] [address] Dr. Gideon aP ALT [Catalytic activity/Vol] 29 U/L Normal 16-63 [facility] Comment on above: Performed By: #### F T3, TSH, LIPID, T4, CMP #### [facility] [address] [place] [address] Dr. Gideon Pa Anion gap [Moles/Vol] 12.4 mmol/L Normal [facility] Comment on above: Performed By: #### F T3, TSH, LIPID, T4, CMP #### [facility] [address] [place] [address] Dr. Gideon Pa AST [Catalytic activity/Vol] 14 U/L Critically low 15-37 [facility] Comment on above: Performed By: #### F T3, TSH, LIPID, T4, CMP #### [facility] [address] [place] [address] Dr. Gideon Pa Bilirubin [Mass/Vol] 0.6 mg/dL Normal 0.2-1.0 [facility] Comment on above: Performed By: #### F T3, TSH, LIPID, T4, CMP #### [facility] [address] [place] [address] Dr. Gideon Pa Calcium [Mass/Vol] 8.9 mg/dL Normal 8.5-10.1 [facility] Comment on above: Performed By: #### F T3, TSH, LIPID, T4, CMP #### [facility] [address] [place] [address] Dr. Gideon Pa Chloride [Moles/Vol] 100 mmol/L Normal 98-107 [facility] Comment on above: Performed By: #### F T3, TSH, LIPID, T4, CMP #### [facility] [address] [place] [address] Dr. Gideon Pa CO2 [Moles/Vol] 26.8 mmol/L Normal 21.0-32.0 [facility] Comment on above: Performed By: #### F T3, TSH, LIPID, T4, CMP #### [facility] [address] [address] [address] Gideon Pa Creatinine [Mass/Vol] 0.73 mg/dL Normal 0.70-1.30 [facility] Comment on above: Performed By: #### F T3, TSH, LIPID, T4, CMP #### [facility] [address] [address] [address] Gideon Pa EGFR-AF TOGOLESE >60 Normal >=60 [facility] Comment on above: Performed By: #### F T3, TSH, LIPID, T4, CMP #### [facility] [address] [place] [address] Dr. Gideon Pa EGFR-NON AF TOGOLESE >60 Normal >=60 [facility] Comment on above: Performed By: #### F T3, TSH, LIPID, T4, CMP #### [facility] [address] [address] [address] Gideon Pa Globulin (S) [Mass/Vol] 3.8 g/dL Normal [facility] Comment on above: Performed By: #### F T3, TSH, LIPID, T4, CMP #### [facility] [address] [place] [address] Dr. Gideon Pa Glucose [Mass/Vol] 314 mg/dL Critically high 74-106 [facility] Comment on above: Performed By: #### F T3, TSH, LIPID, T4, CMP #### [facility] [address] [address] [address] Gideon Pa Potassium [Moles/Vol] 4.2 mmol/L Normal 3.5-5.1 [facility] Comment on above: Performed By: #### F T3, TSH, LIPID, T4, CMP #### [facility] [address] [place] [address] Dr. Gideon Pa Protein [Mass/Vol] 7.5 g/dL Normal 6.4-8.2 [facility] Comment on above: Performed By: #### F T3, TSH, LIPID, T4, CMP #### [facility] [address] [place] [address] Dr. Gideon Pa Sodium [Moles/Vol] 135 mmol/L Critically low 136-145 [facility] Comment on above: Performed By: #### F T3, TSH, LIPID, T4, CMP #### [facility] [address] [place] [address] Dr. Gideon Pa Urea nitrogen [Mass/Vol] 14.0 mg/dL Normal 7.0-18.0 [facility] Comment on above: Performed By: #### F T3, TSH, LIPID, T4, CMP #### [facility] [address] [place] [address] Dr. Gideon Pa Urea nitrogen/Creatinine [Mass ratio] 19.2 mg/mg Normal [facility] Comment on above: Performed By: #### F T3, TSH, LIPID, T4, CMP #### [facility] [address] [place] [address] Dr. Gideon Pa T4on 10-13-2022 T4 [Mass/Vol] 11.30 ug/dL Normal 4.50-12.10 [facility] Comment on above: Performed By: #### F T3, TSH, LIPID, T4, CMP #### [facility] [address] [place] [address] Dr. Gideon Pa TSHon 10-13-2022 TSH 0.920 uIU/mL Normal 0.358-3.740 [facility] Comment on above: Performed By: #### F T3, TSH, LIPID, T4, CMP #### [facility] [address] [place] [address] Dr. Gideon Pa Encounters Encounter Date Encounter Type Care Provider Facility Start: 01-03-2025 End: 01-03-2025 [employer] Hunter Valencia DO Work Phone: [facility] Start: 01-03-2025 End: 01-03-2025 [employer] Hunter Valencia DO Work Phone: [facility] Start: 01-03-2025 End: 01-03-2025 Patient encounter procedure Hunter Valencia DO Work Phone: [facility] Comment on above: Paresthesia (Primary Dx) Start: 01-03-2025 End: 01-03-2025 ambulatory HUNTER VALENCIA Not Available Start: 11-26-2024 End: 11-26-2024 ambulatory Dalton Andrade MD Facility:[facility] Start: 10-13-2022 End: 10-14-[address] BROOKS PERALTA . Facility: Start: 08-26-[address] BROOKS PERALTA . Facili ty:[facility] Procedures Date Procedure Procedure Detail Performing Clinician Start: 01-03-2025 End: 01-03-2025 Needle emg ea extremty w/paraspinl area complete Hunter Valencia DO Work Phone: Start: 10-13-[address] RENETTA PERALTA . Comment on above: Performed By: #### P [facility] #### [facility] [address] [place] [address] Dr. Gideon Pa Plan of Treatment Date Care Activity Detail Author Start: 01-03-2025 End: 01-03-2025 Patient encounter procedure 01/03/2025 1:30 PM EST Procedure Visit [facility] [address] [place] [phone] Hunter Valencia DO [address] [place], [place] [id number] Arrived [facility] Comment on above: Arrived Start: 07-01-2024 Influenza vaccination Influenza Vacc ine (#1) [facility] Start: 1975 Screening for malign ant neoplasm of colon [facility] Payers Date Payer Category Payer Private Health Insurance 1975 Unknown [id number] [id number] [id number] 1975 Unknown [id number] [id number] [id number] 1975 Unknown [id number] 1974 Unknown [id number] [id number] [id number] 1960 Self-pay [id number] 1960 Unknown [id number] 1960 Unknown [id number] Social History Date Type Detail Facility Tobacco smoking stat [facility] Tobacco smoking consumption unknown [facility] Start: 1975 Sex assigned at [...] Patient: Obi Cole : 1975 EMG Computer: In Flow Referring Physician: Dr. Dalton Andrade EMG: [facility] high school math teacher: Jaylen WATTS(R) Office Location: [place] Reason for EMG: c/o numbness/tingling & pain in bilateral feet/legs, low back pain into bilateral hips R>L. Hx of DM. 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 Patient appeared to have tolerated the test well despite some discomfort due to the nature of the test. documented in this encounter [facility] Evaluation note Note Date & Type Note Facility Evaluation note Diagnosis Paresthesia- Primary Disturbance of skin sensation documented in this encounter [facility] Reason for visit Narrative Other Medical (Routine) - Closed Note Date & Type Note Facility Reason for visit Narrative Specialty Diagnoses / Procedures Referred By Sean pickard Referred To Contact Neurology Diagnoses Other specified diabetes mellitus with diabetic neuropathy, unspecified ([facility]/HCC) Procedures GA NEEDLE EMG EA EXTREMTY W/PARASPINL AREA COMPLETE GA NERVE CONDUCTION STUDIES 9-10 STUDIES Dalton Andrade MD [address] [place] [address] Phone: tel: fax: Barrett Leger MD [address] [place] [address] Phone: tel: fax: Referral ID Status Reason Start Date Expiration Date V isits Requested Visits Authorized [id number] Closed Perform Procedure 11/27/2024 05/26/2025 1 1 [...] and content) DATE CREATED AUTHOR 01/13/2023 [facility] DATE CREATED AUTHOR AUTHOR'S ORGANIZ ATION 12/02/2024 [facility] DATE CREATED AUTHOR AUTHOR'S ORGANIZ ATION 01/05/2025 [facility] [employer] Care Teams (unrecognized sec tion and content) Branding Machine Operator Relationship Specialty Start Date End Date Brooks Peralta MD [address] [place] [phone] PCP - General Family Medicine 01/03/25 Dalton Andrade MD [address] [place] [address] Referring Physician Pain Medicine 11/27/24 Hunter Valencia DO [address] [place] [address] Referring Physician Neurology 01/03/25 Branding Machine Operator Relationship Specialty Start Date End Date Brooks Peralta MD [address] [place] [address] PCP - General Family Medicine 01/03/25 Dalton Andrade MD [address] [place] [address] Referring Physician Pain Medicine 11/27/24 Hunter Valencia DO [address] [address] Referring Physician Neurology 01/03/25 FOR RECORDS PERTAINING [...] BE BASED ON THE PRIMARY CLINICAL RECORDS. [employer] provides no warranty or guarantee of the accuracy or completeness of information in this document.
== END 2025-05-22 13:31 | disposition home or self-care (01) ==
LOC: CT 13:30
PROVIDERS: PCP Family Medicine; Visit Provider Family Medicine
DX: F17.210 Nicotine dependence, cigarettes, uncomplicated (principal); R91.1 Solitary pulmonary nodule
CPT/HCPCS: 71271

== ENCOUNTER 2025-05-23 11:53 | Outpatient (OUT) | payer OTHER, SELFPAY ==
--- OUTSIDE RECORDS SUMMARY | 2025-04-25 07:39 | XMS_ITS ---
Author Organization The [facility] in [place] Address [address] [place] [address] Care Team Providers Care Convenience Store Clerk Name Role Phone UrielRah corbin Primary Care Provider Reason For Referral Diagnosis 1 Nevus (D22.9) Referral Organization [facility] Referring Provider First Name Rah Referring Provider Last Name Nikia Referring Provider [facility] icine Referred Provider Nba Clark Referred Provider Specialty Dermatology Referral Priority Routine REASON FOR VISIT Referral derm Encounters Encounter Location Date Provider Diagnosis [facility] [address] [facility] [place] [address] 04/25/2025 Rah Montejo Nevus D22.9 Assessments Encounter Date Diagnosis (ICD Code) Assessment Notes Treatment Notes Treatment Clinical Notes Section Notes 04/25/2025 Nevus (ICD-10 - D22.9) Plan Of Treatment Referrals Referral Date Details 04/25/2025 04/25/2025, Nba fam Progress Notes * Obi COLE CDOB:1974 (49 yo M)Acc No.[id number]:04/25/2025 Patient: Obi DOS SANTOS Ginny :1975 A ge:49 Y S ex:Male Address:[place] [address] Subjective: * Chief Complaints: * R eferral derm * Medical History: * Surgical History: * Hospitalization/Major Diagno stic Procedure: * Medications: Objective: * Vitals: * Physical Examination: Assessment: * Assessment: 1. N evus - D22.9 (Primary) Plan: * Treatment: * Procedure Codes: * true * Date: Generated for Devini vahe/Francisco/Theresaitting on: 0 05/23/2025 11:55 AM EDT Consultation Request Notes Referral Date Referring Provider Referred Provider Not es 04/25/2025 Rah Montejo Thomas
--- OUTSIDE RECORDS SUMMARY | 2025-05-12 12:20 | XMS_ITS ---
Author Organization The [facility] in [place] Address [address] [place] [address] Care Team Providers Care Cleaner And Dyer Name Role Phone Rah Montejo Primary Care Provider REASON FOR VISIT MRI Results Encounters Encounter Location Date Provider Diagnosis [facility] [address] [facility] [place] [address] 05/12/2025 Rah Montejo Plan Of Treatment No Information Progress Notes * Obi COLE CDOB:1974 (49 yo M)Acc No.[id number]:05/12/2025 Patient: Rayray PEÑAObi :1975 A ge:49 Y S ex:Male Address:[address] [place] [address] * true * Date: Generated for Printi ng/Faxing/eTransmitting on: 0 05/23/2025 11:55 AM EDT
--- OUTSIDE RECORDS SUMMARY | 2025-05-22 14:08 | XMS_ITS ---
Author Organization [facility] in [place] Address [address] [place] [address] Care Team Providers Care Sales Team Manager Name Role Phone Rah Montejo Primary Care Provider REASON FOR VISIT review LD CT Problems Problem Type SNOMED Code ICD Code Onset Dates Problem Status W/U Status Risk Notes Problem Pulmonary nodule (662766692) Pulmonary nodule (R91.1) Active confirmed Encounters Encounter Location Date Provider Diagnosis [facility] [address] [facility] [address] 05/22/2025 Rah Montejo Plan Of Treatment No Information Progress Notes * Obi COLE CDOB:1974 (49 yo M)Acc No.[id number]:05/22/2025 Patient: Rayray PEÑA Obi Gross :1975 A ge:49 Y S ex:Male Address:[address] [place] [address] * true * Date: Generated for Printi ng/Faxing/eTransmitting on: 0 05/23/2025 11:55 AM EDT
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
--- OUTSIDE RECORDS SUMMARY | 2025-05-23 11:56 | XMS_ITS | Clinical Summary ---
Author Organization [employer] [facility] tem Address [id number] [address] [place] [address] Care Team Providers Care Wellfield Technician Name Role Phone Unavailable Primary Care [...]
[2025-05-23 12:47] LABS: Alanine Aminotransferase 31 U/L (16-63); Albumin Globulin Ratio 1.0; Albumin Level 3.6 g/dL (3.4-5.0); Alkaline Phosphatase 142 U/L (46-116); Anion Gap 13.4; Aspartate Amino Transferase 15 U/L (15-37); Blood Urea Nitrogen 8.0 mg/dL (7.0-18.0); Calcium 9.5 mg/dL (8.5-10.1); Carbon Dioxide 26.7 mmol/L (21.0-32.0); Chloride 100 mmol/L (98-107); Cholesterol 127 mg/dL (<=200); Estimated GFR (African America >60 (>=60 mL/min/1.73m^2); Estimated GFR (Non-African Ame >60 (>=60 mL/min/1.73m^2); Free T3 2.63 pg/mL (2.18-3.98); Globulin 3.6 g/dL; Glucose 212 mg/dL (74-106); HDL Cholesterol 31 mg/dL (40-60); Potassium 4.1 mmol/L (3.5-5.1); Sodium 136 mmol/L (136-145); Thyroid Stimulating Hormone 0.766 uIU/mL (0.358-3.740); Total Protein 7.2 g/dL (6.4-8.2); Triglycerides 179 mg/dL (<=150); VLDL CHOLESTEROL 35.8 mg/dL
[2025-05-23 13:06] LABS: Hematocrit 51.7 % (42.0-54.0); Hemoglobin 17.9 g/dL (14.0-18.0); Immature Granulocytes Abs Auto 0.04 10^3/uL (0.00-0.03); Immature Granulocytes Pct Auto 0.4 % (0.0-0.5); Lymphocytes Absolute Auto 3.2 10^3/uL (1.2-3.8); Mean Corpuscular HGB Conc 34.6 g/dL (29.9-35.2); Mean Corpuscular Hemoglobin 29.5 pg (25.9-34.0); Mean Corpuscular Volume 85.3 fL (80.0-94.0); Platelet Count 248 10^3/uL (150-450); Red Blood Count 6.06 10^6/uL (4.70-6.10); White Blood Count 11.1 10^3/uL (4.0-11.0)
== END 2025-05-23 11:54 | disposition home or self-care (01) ==
PROVIDERS: PCP Family Medicine; Visit Provider Family Medicine
DX: N52.9 Male erectile dysfunction, unspecified (principal); I10 Essential (primary) hypertension; E11.65 Type 2 diabetes mellitus with hyperglycemia; E11.42 Type 2 diabetes mellitus with diabetic polyneuropathy; D22.9 Melanocytic nevi, unspecified
CPT/HCPCS: 36415; 80053; 80061; 83036; 84436; 84443; 84481; 85025; G0103

== ENCOUNTER 2025-06-10 08:59 | Day surgery (SDC) | payer OTHER, SELFPAY ==
--- OUTSIDE RECORDS SUMMARY | 2025-05-12 12:20 | XMS_ITS ---
Author Organization The [facility] in [place] Address [address] [place] [address] Care Team Providers Care Software Implementation Specialist Name Role Phone Rah Montejo Primary Care Provider REASON FOR VISIT MRI Results Encounters Encounter Location Date Provider Diagnosis [facility] [address] [facility] [place] [address] 05/12/2025 Rah Montejo Plan Of Treatment No Information Progress Notes * Obi COLE CDOB:1974 (49 yo M)Acc No.[id number]:05/12/2025 Patient: Rayray PEÑAObi :1975 A ge:49 Y S ex:Male Address:[address] [place] [address] * true * Date: Generated for Printi ng/Faxing/eTransmitting on: 0 06/10/2025 08:43 AM EDT
--- OUTSIDE RECORDS SUMMARY | 2025-05-22 14:08 | XMS_ITS ---
Author Organization The [facility] [place] Address [address] [place] [address] Care Team Providers Care Quirk Sander Name Role Phone Rah Montejo Primary Care Provider REASON FOR VISIT review LD CT Problems Problem Type SNOMED Code ICD Code Onset Dates Problem Status W/U Status Risk Notes Problem Pulmonary nodule (456050541) Pulmonary nodule (R91.1) Active confirmed Encounters Encounter Location Date Provider Diagnosis [facility] [address] [facility] [place] [address] 05/22/2025 Rah Montejo Plan Of Treatment No Information Progress Notes * Obi COLE CDOB:1974 (49 yo M)Acc No.[id number]:05/22/2025 Patient: Rayray PEÑA Obi Gross :1975 A ge:49 Y S ex:Male Address:[address] [place] [address] * true * Date: Generated for Printi ng/Faxing/eTransmitting on: 0 06/10/2025 08:43 AM EDT
--- OUTSIDE RECORDS SUMMARY | 2025-05-23 09:41 | XMS_ITS ---
Author Organization [facility] in [place] Address [address] [place] [address] Care Team Providers Care Farm Loan Representative Name Role Phone Rah Montejo Primary Care Provider [phone] REASON FOR VISIT Lab results Medications Medication SIG (Take, Route, Fr equency, Duration) Notes Start Date End Date Status Glimepiride 4 MG 1 tablet with breakf ast or the first main meal of the day Orally Once a day for 30 days 07/31/2024 Active Encounters Encounter Location Date Provider Diagnosis [facility] [address] [facility] [place] [address] 05/23/2025 Rah Urielshaquille Plan Of Treatment Medication Medication Name Sig Start Date Stop Date Notes Glimepiride 4 MG 1 tablet with breakf ast or the first main meal of the day Orally Once a day for 30 days 07/31/2024 Progress Notes * Obi COLE CDOB:1974 (49 yo M)Acc No.[id number]:05/23/2025 Patient: Rayray PEÑA Obi Gross :1975 A ge:49 Y S ex:Male Address:[address] [place] [address] * Refills Refill Glimepiride Tablet, 4 MG, Orally, 30, 1 tablet with breakfast or the first main meal of the day, Once a day, 30 days, Refills=11 * true * Date: Generated for Printi ng/Faxing/eTransmitting on: 0 06/10/2025 08:43 AM EDT
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
--- OUTSIDE RECORDS SUMMARY | 2025-06-10 09:02 | XMS_ITS | Clinical Summary ---
Author Organization [facility] [facility] tem Address [id number] [address] [place] [address] Care Team Providers Care Supervisor [employer] Name Role Phone Unavailable Primary Care Provider [...] Devices Not on file Insurance [employer] Member Subscriber Plan / Payer (Ef fective 2022-Present) Name:Obi Rodríguez III Relation to Subscriber:Self Name:Obi Rodríguez III Payer ID:Not on file Group ID:Not on file Type:Not on file Address: [address] [place] [phone]
--- OUTSIDE RECORDS SUMMARY | 2025-06-10 09:02 | XMS_ITS | Clinical Summary ---
Author Organization [facility] Address [address] [place] [address] Care Team Providers Care Billet Worker Name Role Phone Dalton Andrade MD Unavailable [phone] Brooks Montejo MD Primary Care Provider + [...] on file Insurance [place]ICAID [place] Care Teams Billet Worker Relationship Specialty Start Date End Date Brooks Montejo MD [address] [place], [place] [phone] PCP - General Family Medicine 01/03/25 Dalton Andrade MD [address], [place] [phone] Referring Physician Pain Medicine 11/27/24 Hunter Valencia DO [address] [place] [address] Referring Physician Neurology 01/03/25
[2025-06-10 09:12] VITALS: BP 138/84; PULSE 76; TEMP 36.4; O2SAT 98
[2025-06-10 09:36] VITALS: BP 162/76; PULSE 78; O2SAT 98
[2025-06-10 09:39] VITALS: BP 148/74; PULSE 78; O2SAT 98
[2025-06-10] MEDS: IOHEXOL 240 MG/ML - 10 ML VIAL 24 MG INJ (09:41)
[2025-06-10] MEDS: 0.9 % SODIUM CHLORIDE 10 ML SYRINGE - SALINE FLUSH INJ (09:41)
[2025-06-10] MEDS: BUPIVACAINE HCL 0.25% PF 25 MG/10 ML VIAL INJ (09:41)
[2025-06-10] MEDS: LIDOCAINE HCL 2% 400 MG/20 ML MDV 3 ML INJ (09:42)
[2025-06-10] MEDS: METHYLPREDNISOLONE ACETATE 80 MG/ML VIAL INJ (09:42)
--- NOTE | 2025-06-10 09:53 | W.PM.PROCNOT ---
Date of procedure: 06/10/25 Pre-op diagnosis: Pain due to lumbar stenosis with neurogenic claudication Post-op diagnosis: same as pre-op Procedure: Procedure: BIlateral L4-5 transforaminal epidural steroid injection Medications: Bupivacaine 0.25% 2cc, lidocaine 2% 1cc, depomedrol 80mg The patient was seen and examined in the preoperative holding area.? Informed consent was obtained and placed on the chart.? Patient was brought to the medical procedure unit and placed in the prone position where a timeout was completed verifying the correct patient, procedure site, position, and planned special equipment using sterile aseptic technique.? Under direct fluoroscopic visualization a 25-gauge Quincke tipped spinal needle was advanced at level left L4-5 to the designated neural foramen where contrast dye was injected to show adequate spread.? There was no evidence of vascular or adverse uptake.? Epidural spread was appreciated.? The above-mentioned injectate was then placed in a 1.5 mL aliquot preceded by negative aspiration.? The needle was removed. The same procedure, at the same level, was completed on the opposite side. ? Patient was taken to the postprocedural recovery area and monitored for an appropriate length of time before found suitable for discharge in the accompaniment of a responsible adult.? Anesthesia: Local Surgeon: Dalton Andrade Pathology: none sent Condition: stable Disposition: no change
== END 2025-06-10 09:45 | disposition home or self-care (01) ==
LOC: SURGOUT 09:00
PROVIDERS: PCP Family Medicine; Visit Provider Anesthesiology
DX: M48.062 Spinal stenosis, lumbar region with neurogenic claudication (principal); M54.50 Low back pain, unspecified; E11.8 Type 2 diabetes mellitus with unspecified complications; Z79.84 Long term (current) use of oral hypoglycemic drugs
CPT/HCPCS: 36415; 64483; 82948; J0665; J1010; Q9966

== ENCOUNTER 2025-06-20 12:31 | Outpatient (OUT) | payer OTHER, SELFPAY ==
--- OUTSIDE RECORDS SUMMARY | 2025-05-22 14:08 | XMS_ITS ---
Author Organization [facility] in [place] Address [address] [place] [address] Care Team Providers Care Service Center Technician Name Role Phone Rah Montejo Primary Care Provider REASON FOR VISIT review LD CT Problems Problem Type SNOMED Code ICD Code Onset Dates Problem Status W/U Status Risk Notes Problem Pulmonary nodule (196968512) Pulmonary nodule (R91.1) Active confirmed Encounters Encounter Location Date Provider Diagnosis [facility] [address] [place] [address] 05/22/2025 Rah [place] Plan Of Treatment Next Appt Details Provider Name:Rah Hunter Nikia, 03:15:00 PM, [address] [place], [address], Progress Notes * Obi COLE CDOB:1974 (49 yo M)Acc No.[id number]:05/22/2025 Patient: Rayray Obi PEÑA :1975 A ge:49 Y S ex:Male Address:[address] [place] [address] * true * Date: Generated for Heather cotter/Faayannag/eTransmitting on: 0 06/20/2025 12:33 PM EDT
--- OUTSIDE RECORDS SUMMARY | 2025-05-23 09:41 | XMS_ITS ---
Author Organization [facility] in [place] Address [address] [place] [address] Care Team Providers Care Management Planner Name Role Phone Rah Montejo Primary Care Provider REASON FOR VISIT Lab results Medications Medication SIG (Take, Route, Fr equency, Duration) Notes Start Date End Date Status Glimepiride 4 MG 1 tablet with breakf ast or the first main meal of the day Orally Once a day for 30 days 07/31/2024 Active Encounters Encounter Location Date Provider Diagnosis [facility] [address] [place] [address] 05/23/2025 Rah Nikia Plan Of Treatment Medication Medication Name Sig Start Date Stop Date Notes Glimepiride 4 MG 1 tablet with breakf ast or the first main meal of the day Orally Once a day for 30 days 07/31/2024 Next Appt Details Provider Name:Rah Dale Montejo, 03:15:00 PM, [address] [place], [address], Progress Notes * Obi COLE CDOB:1974 (49 yo M)Acc No.[id number]:05/23/2025 Patient: Rayray PEÑAObi :1975 A ge:49 Y S ex:Male Address:[address] [place] [address] * Refills Refill Glimepiride Tablet, 4 MG, Orally, 30, 1 tablet with breakfast or the first main meal of the day, Once a day, 30 days, Refills=11 * true * Date: Generated for Heather cotter/Francisco/Katlin on: 0 06/20/2025 12:32 PM EDT
--- OUTSIDE RECORDS SUMMARY | 2025-06-20 11:15 | XMS_ITS ---
Author Organization The [facility] in [place] Address [address] [place] [address] Care Team Providers Care Layout Technician Name Role Phone Rah Montejo Primary Care Provider REASON FOR VISIT MULTIPLE ISSUES Encounters Encounter Location Date Provider Diagnosis [facility] [address] [place] [address] 06/20/2025 Rah Montejo Plan Of Treatment Next Appt Details Provider Name:Rah Montejo, 03:15:00 PM, [address] [facility], [place], [address], Progress Notes * Obi COLE CDOB:1974 (49 yo M)Acc No.[id number]:06/20/2025 UNLOCKED PROGRESS NOTE Progress Note Patient: Obi DOS SANTOS Ginny Provider: Vinod Montejo MD (TTC) :1975 A ge:49 Y S ex:Male Date:06/20/2025 Address:[address] [place], [place] Subjective: * Chief Complaints: * 1 . MULTIPLE ISSUES. * Medical History: Objective: * Vitals: Assessment: Plan: * Treatment: * * Electronic signature of Rah Montejo MD, [phone] on 06/20/2025 at 12:33 PM EDT Sign off status: Pending Visit Status: P EN (Pending) * Provider: Vinod Montejo MD (TTC) Date: 0 06/20/2025 Generated for Heather cotter/Francisco/Theresaitting on: 0 06/20/2025 12:33 PM EDT
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
--- OUTSIDE RECORDS SUMMARY | 2025-06-20 12:33 | XMS_ITS | Clinical Summary ---
Author Organization [facility] Address [address] [place] [address] Care Team Providers Care .Net Programmer Name Role Phone Dalton Andrade MD Unavailable [phone] Brooks Montejo MD Primary Care Provider + [...] on file Insurance [place]ICAID [place] Care Teams .Net Programmer Relationship Specialty Start Date End Date Brooks Montejo MD [address] [place], [place] [phone] PCP - General Family Medicine 01/03/25 Dalton Andrade MD [address], [place] [phone] Referring Physician Pain Medicine 11/27/24 Hunter Valencia DO [address] [place] [address] Referring Physician Neurology 01/03/25
--- OUTSIDE RECORDS SUMMARY | 2025-06-20 12:33 | XMS_ITS | Clinical Summary ---
Author Organization [facility] tem Address [id number] [address] [place] [address] Care Team Providers Care Occupational Therapy Supervisor Name Role Phone Unavailable Primary Care Provider [...]
--- OUTSIDE RECORDS SUMMARY | 2025-06-20 12:43 | XMS_ITS | CCD ---
Author Organization [facility] Care Team Providers Care Department Traffic Freight Router Name Role Phone KATHRYN ., DR MCKNIGHT Admitting Unavailable HOY ., DR MCKNIGHT Attending Unavailable HOY ., DR MCKNIGHT Primary Care Unavailable HOY ., DR MCKNIGHT Admitting Unavailable HOY ., DR MCKNIGHT Attending Unavailable HOY ., DR MCKNIGHT Primary Care Unavailable HOY ., DR MCKNIGHT Consulting Unavailable Raymond YAO, Andrius Chase Attending Unavailable Raymond YAO, Andrius Unavailable Brooks Peralta MD Primary Care Provider [phone] Hunter Valencia DO Unavailable HUNTER VALENCIA [...] 10-13-2022 BASO # 0.1 103/ul Normal 0.0-0.1 [facility] Comment on above: Performed By: #### C BC #### [facility] [address] [address] [address] Gideon Pa Basophils/100 WBC (Bld) 0.7 % Normal 0.2-2.0 [facility] Comment on above: Performed By: #### C BC #### [facility] [address] [address] [address] Gideon Pa EO # 0.4 103/ul Normal 0.0-0.7 [facility] Comment on above: Performed By: #### C BC #### [facility] [address] [place] [address] Dr. Gideon Pa Eosinophils/100 WBC (Bld) 3.9 % Normal 0.9-7.0 [facility] Comment on above: Performed By: #### C BC #### [facility] [address] [place] [address] Dr. Gideon Pa Erythrocyte distribution width (RBC) [Ratio] 13.8 % Normal 11.0-15.0 [facility] Comment on above: Performed By: #### C BC #### [facility] [address] [place] [address] Dr. Gideon Pa Hematocrit (Bld) [Volume fraction] 51.7 % Normal 42.0-54.0 [facility] Comment on above: Performed By: #### C BC #### [facility] [address] [place] [address] Dr. Gideon Pa Hemoglobin (Bld) [Mass/Vol] 18.0 g/dL Normal 14.0-18.0 [facility] Comment on above: Performed By: #### C BC #### [facility] [address] [place] [address] Dr. Gideon Pa IG # 0.05 10e3/ul Critically high 0.00-0.03 [facility] Comment on above: Performed By: #### C BC #### [facility] [address] [place] [address] Dr. Gideon Pa IG % 0.5 % Normal 0.0-0.5 [facility] Comment on above: Performed By: #### C BC #### [facility] [address] [place] [address] Dr. Gideon Pa LYMPH # 2.4 103/ul Normal 1.2-3.8 [facility] Comment on above: Performed By: #### C BC #### [facility] [address] [place] [address] Dr. Gideon Pa Lymphocytes/100 WBC (Bld) 24.2 % Normal 20.5-60.0 [facility] Comment on above: Performed By: #### C BC #### [facility] [address] [place] [address] Dr. Gideon Pa MANUAL DIFF REQ NO Normal [facility] Comment on above: Performed By: #### C BC #### [facility] [address] [place] [address] Dr. Gideon Pa MCH (RBC) [Entitic mass] 29.5 pg Normal 25.9-34.0 [facility] Comment on above: Performed By: #### C BC #### [facility] [address] [place] [address] Dr. Gideon Pa MCHC (RBC) [Mass/Vol] 34.8 g/dL Normal 29.9-35.2 [facility] Comment on above: Performed By: #### C BC #### [facility] [address] [place] [address] Dr. Gideon Pa MCV (RBC) [Entitic vol] 84.6 fL Normal 80.0-94.0 [facility] Comment on above: Performed By: #### C BC #### [facility] [address] [place] [address] Dr. Gideon Pa MONO # 0.9 103/ul Critically high 0.3-0.[address] [facility] Comment on above: Performed By: #### C BC #### [facility] [address] [place] [address] Dr. Gideon Pa Monocytes/100 WBC (Bld) 8.5 % Normal 1.7-12.0 [facility] Comment on above: Performed By: #### C BC #### [facility] [address] [place] [address] Dr. Gideon Pa NEUT # 6.3 103/ul Normal 1.4-6.5 [facility] Comment on above: Performed By: #### C BC #### [facility] [address] [place] [address] Dr. Gideon Pa Neutrophils/100 WBC (Bld) 62.2 % Normal 43.0-75.0 [facility] Comment on above: Performed By: #### C BC #### [facility] [address] [place] [address] Dr. Gideon Pa Platelet mean volume (Bld) [Entitic vol] 10.2 fL Normal 9.5-13.5 [facility] Comment on above: Performed By: #### C BC #### [facility] [address] [place] [address] Dr. Gideon Pa PLT 230 103/ul Normal 150-450 [facility] Comment on above: Performed By: #### C BC #### [facility] [address] [place] [address] Dr. Gideon Pa RBC 6.11 106/ul Critically high 4.70-6.10 [facility] Comment on above: Performed By: #### C BC #### [facility] [address] [place] [address] Dr. Gideon Pa WBC 10.1 103/ul Normal 4.0-11.0 [facility] Comment on above: Performed By: #### C BC #### [facility] [address] [place] [address] Dr. Gideon Pa FREE T3on 10-13-2022 FREE T3 2.98 pg/mlL Normal 2.18-3.98 [facility] Comment on above: Performed By: #### F T3, TSH, LIPID, T4, CMP #### [facility] [address] [place] [address] Dr. Gideon Pa GLYCOHEMOGLOBIN A1Con 2021 ADA RECOMMENDATION SEE BELOW Normal [facility] Comment on above: Result Comment: ADA RECOMMENDED LIMIT 4.0 - 6.0 ADA THERAPEUTIC TARGET < 7.0 ACTION SUGGESTED > 7.0 Performed By: #### A 1C #### [facility] [address] [address] [address] Gideon Pa Glucose [Mass/Vol] 240 mg/dL Normal [facility] Comment on above: Performed By: #### A 1C #### [facility] [address] [address] [address] Gideon Pa HbA1c (Bld) [Mass fraction] 10.0 % Critically high 4.5-6.2 [facility] Comment on above: Performed By: #### A 1C #### [facility] [address] [place] [address] Dr. Gideon Pa LIPID PROFILEon 10-13-2022 CHOL-HDL RATIO NORM SEE BELOW Normal [facility] Comment on above: Result Comment: 3.3 - 4.4 LOW RISK 4.4 - 7.1 AVERAGE RISK 7.1 - 11.0 MODERATE RISK >11.0 HIGH RISK Performed By: #### F T3, TSH, LIPID, T4, CMP #### [facility] [address] [address] [address] Gideon Pa Cholesterol [Mass/Vol] 150 mg/dL Normal <=200 [facility] Comment on above: Performed By: #### F T3, TSH, LIPID, T4, CMP #### [facility] [address] [address] [address] Gideno Pa Cholesterol in HDL [Mass/Vol] 30 mg/dL Critically low 40-60 [facility] Comment on above: Performed By: #### F T3, TSH, LIPID, T4, CMP #### [facility] [address] [address] [address] Gideon Pa Cholesterol in LDL [Mass/Vol] 81.0 mg/dL Normal [facility] Comment on above: Performed By: #### F T3, TSH, LIPID, T4, CMP #### [facility] [address] [address] [address] Gideon Pa Cholesterol.total/Cho lesterol in HDL [Mass ratio] 5.0 {ratio} Normal [facility] Comment on above: Performed By: #### F T3, TSH, LIPID, T4, CMP #### [facility] [address] [address] [address] Gideon Pa HDL NORMAL > or = 60 mg/dl - LOW CARDIOVASCULAR RISK <40 mg/dl - HIGH CARDIOVASCULAR RISK Normal [facility] Comment on above: Performed By: #### F T3, TSH, LIPID, T4, CMP #### [facility] [address] [address] [address] Gideon Pa LDL CALC NORMAL SEE BELOW Normal [facility] Comment on above: Result Comment: <100 mg/dl OPTIMAL 100 - 129 mg/dl NEAR OR ABOVE OPTIMAL 130 - 159 mg/dl BORDERLINE HIGH 160 - 189 mg/dl HIGH >190 mg/dl VERY HIGH Performed By: #### F T3, TSH, LIPID, T4, CMP #### [facility] [address] [address] [address] Gideon Pa Triglyceride [Mass/Vol] 195 mg/dL Critically high <=150 [facility] Comment on above: Performed By: #### F T3, TSH, LIPID, T4, CMP #### [facility] [address] [place] [address] Dr. Gideon Pa VLDL CALC 39.0 mg/dL Normal [facility] Comment on above: Performed By: #### F T3, TSH, LIPID, T4, CMP #### [facility] [address] [place] [address] Dr. Gideon Pa PROF 14(COMP METB)on 022 Albumin [Mass/Vol] 3.7 g/dL Normal 3.4-5.0 [facility] Comment on above: Performed By: #### F T3, TSH, LIPID, T4, CMP #### [facility] [address] [place] [address] Dr. Gideon Pa Albumin/Globulin [Mass ratio] 1.0 {ratio} Normal [facility] Comment on above: Performed By: #### F T3, TSH, LIPID, T4, CMP #### [facility] [address] [place] [address] Dr. Gideon Pa ALP [Catalytic activity/Vol] 131 U/L Critically high 46-116 [facility] Comment on above: Performed By: #### F T3, TSH, LIPID, T4, CMP #### [facility] [address] [place] [address] Dr. Gideon Pa ALT [Catalytic activity/Vol] 29 U/L Normal 16-63 [facility] Comment on above: Performed By: #### F T3, TSH, LIPID, T4, CMP #### [facility] [address] [place] [address] Dr. Gideon Pa Anion gap [Moles/Vol] 12.4 mmol/L Normal [facility] Comment on above: Performed By: #### F T3, TSH, LIPID, T4, CMP #### [facility] [address] [place] [address] Dr. Gideon Pa AST [Catalytic activity/Vol] 14 U/L Critically low 15-37 [facility] Comment on above: Performed By: #### F T3, TSH, LIPID, T4, CMP #### [facility] [address] [place] [address] Dr. Gideon Pa Bilirubin [Mass/Vol] 0.6 mg/dL Normal 0.2-1.0 [facility] Comment on above: Performed By: #### F T3, TSH, LIPID, T4, CMP #### [facility] [address] [place] [address] Dr. Gideon Pa Calcium [Mass/Vol] 8.9 mg/dL Normal 8.5-10.1 [facility] Comment on above: Performed By: #### F T3, TSH, LIPID, T4, CMP #### [facility] [address] [place] [address] Dr. Gideon Pa Chloride [Moles/Vol] 100 mmol/L Normal 98-107 [facility] Comment on above: Performed By: #### F T3, TSH, LIPID, T4, CMP #### [facility] [address] [place] [address] Dr. Gideon Pa CO2 [Moles/Vol] 26.8 mmol/L Normal 21.0-32.0 [facility] Comment on above: Performed By: #### F T3, TSH, LIPID, T4, CMP #### [facility] [address] [address] [address] Gideon Pa Creatinine [Mass/Vol] 0.73 mg/dL Normal 0.70-1.30 [facility] Comment on above: Performed By: #### F T3, TSH, LIPID, T4, CMP #### [facility] [address] [address] [address] Gideon Pa EGFR-AF BHUTANESE >60 Normal >=60 [facility] Comment on above: Performed By: #### F T3, TSH, LIPID, T4, CMP #### [facility] [address] [place] [address] Dr. Gideon Pa EGFR-NON AF BHUTANESE >60 Normal >=60 [facility] Comment on above: Performed By: #### F T3, TSH, LIPID, T4, CMP #### [facility] [address] [address] [address] Gideon Pa Globulin (S) [Mass/Vol] 3.8 g/dL Normal [facility] Comment on above: Performed By: #### F T3, TSH, LIPID, T4, CMP #### [facility] [address] [place] [address] Dr. Gideon Pa Glucose [Mass/Vol] 314 mg/dL Critically high 74-106 [facility] Comment on above: Performed By: #### F T3, TSH, LIPID, T4, CMP #### [facility] [address] [address] [address] Gideon Pa Potassium [Moles/Vol] 4.2 mmol/L Normal 3.5-5.1 [facility] Comment on above: Performed By: #### F T3, TSH, LIPID, T4, CMP #### [facility] [address] [place] [address] Dr. Gideon Pa Protein [Mass/Vol] 7.5 g/dL Normal 6.4-8.2 [facility] Comment on above: Performed By: #### F T3, TSH, LIPID, T4, CMP #### [facility] [address] [place] [address] Dr. Gideon Pa Sodium [Moles/Vol] 135 mmol/L Critically low 136-145 [facility] Comment on above: Performed By: #### F T3, TSH, LIPID, T4, CMP #### [facility] [address] [place] [address] Dr. Gideon Pa Urea nitrogen [Mass/Vol] 14.0 mg/dL Normal 7.0-18.0 [facility] Comment on above: Performed By: #### F T3, TSH, LIPID, T4, CMP #### [facility] [address] [place] [address] Dr. Gideon Pa Urea nitrogen/Creatinine [Mass ratio] 19.2 mg/mg Normal [facility] Comment on above: Performed By: #### F T3, TSH, LIPID, T4, CMP #### [facility] [address] [place] [address] Dr. Gideon Pa T4on 10-13-2022 T4 [Mass/Vol] 11.30 ug/dL Normal 4.50-12.10 [facility] Comment on above: Performed By: #### F T3, TSH, LIPID, T4, CMP #### [facility] [address] [place] [address] Dr. Gideon Pa TSHon 10-13-2022 TSH 0.920 uIU/mL Normal 0.358-3.740 [facility] Comment on above: Performed By: #### F T3, TSH, LIPID, T4, CMP #### [facility] [address] [place] [address] Dr. Gideon Pa Encounters Encounter Date Encounter Type Care Provider Facility Start: 01-03-2025 End: 01-03-2025 [employer] Hunter Valencia DO Work Phone: [facility] Start: 01-03-2025 End: 01-03-2025 [employer] Hunter Valencia DO Work Phone: [facility] Start: 01-03-2025 End: 01-03-2025 Patient encounter procedure Hunter Valencia DO Work Phone: [facility] Comment on above: Paresthesia (Primary Dx) Start: 01-03-2025 End: 01-03-2025 ambulatory HUNTER VALENCIA Not Available Start: 11-26-2024 End: 11-26-2024 ambulatory Dalton Andrade MD Facility:[facility] [place] Start: 10-13-2022 End: 10-14-[address] BROOKS PERALTA . Facility: Start: 08-26-[address] BROOKS PERALTA . Facili ty:[facility]1 Procedures Date Procedure Procedure Detail Performing Clinician Start: 01-03-2025 End: 01-03-2025 Needle emg ea extremty w/paraspinl area complete Hunter Valencia DO Work Phone: Start: 10-13-[address] RENETTA PERALTA . Comment on above: Performed By: #### P [facility] #### [facility] [address] [place] [address] Dr. Gideon Pa Plan of Treatment Date Care Activity Detail Author Start: 01-03-2025 End: 01-03-2025 Patient encounter procedure 01/03/2025 1:30 PM EST Procedure Visit [facility] [address] [place] [phone] Hunter Valencia DO [address] [place], [place] [id number] Arrived [facility] Comment on above: Arrived Start: 07-01-2024 Influenza vaccination Influenza Vacc ine (#1) [facility] Start: 1975 Screening for malign ant neoplasm of colon [facility] Payers Date Payer Category Payer Private Health Insurance 1975 Unknown [id number] [id number] 1974 Unknown [id number] 1974 Unknown [id number] 1974 Unknown [id number] 1959 Self-pay [id number] 1959 Unknown [id number] 1959 Unknown [id number] Social History Date Type Detail Facility Tobacco smoking stat [facility] Tobacco smoking consumption unknown [facility] Start: 1975 Sex assigned at Not [...] Patient: Obi Cole : 1975 EMG Computer: [id number] Referring Physician: Dr. Dalton Andrade EMG: [facility] maintenance shop technician: Jaylen WATTS(R) Office Location: [place] Reason for EMG: c/o numbness/tingling & pain in bilateral feet/legs, low back pain into bilateral hips R>L. Hx of DM. Not on blood thinners Comments: Procedure was explained to the patient & female lean engineer who expressed understanding. Patient appeared to have tolerated the test well despite some discomfort due to the nature of the test. documented in this encounter [facility] Evaluation note Note Date & Type Note Facility Evaluation note Diagnosis Paresthesia- Primary Disturbance of skin sensation documented in this encounter [facility] Reason for visit Narrative Other Medical (Routine) - Closed Note Date & Type Note Facility Reason for visit Narrative Specialty Diagnoses / Procedures Referred By Sean pickard Referred To Contact Neurology Diagnoses Other specified diabetes mellitus with diabetic neuropathy, unspecified ([facility]) Procedures DE NEEDLE EMG EA EXTREMTY W/PARASPINL AREA COMPLETE DE NERVE CONDUCTION STUDIES 9-10 STUDIES Dalton Andrade MD [address] [place] [address] Phone: tel: fax: Barrett Leger MD [address] [place] [address] Phone: tel: fax: Referral ID Status Reason Start Date Expiration Date V isits Requested Visits Authorized [id number] Closed Perform Procedure 11/27/2024 05/26/2025 1 1 [...] and content) DATE CREATED AUTHOR 01/13/2023 [facility] DATE CREATED AUTHOR AUTHOR'S ORGANIZ ATION 12/02/2024 [facility] DATE CREATED AUTHOR AUTHOR'S ORGANIZ ATION 01/05/2025 [facility] dical Specialists [employer] Care Teams (unrecognized sec tion and content) Department Traffic Freight Router Relationship Specialty Start Date End Date Brooks Peralta MD [address] [place] [phone] PCP - General Family Medicine 01/03/25 Dalton Andrade MD [address] [place] [address] Referring Physician Pain Medicine 11/27/24 Hunter Valencia DO [address] [place] [address] Referring Physician Neurology 01/03/25 Department Traffic Freight Router Relationship Specialty Start Date End Date Brooks Peralta MD [address] [place] [phone] PCP - General Family Medicine 01/03/25 Dalton Andrade MD [address] [place] [address] Referring Physician Pain Medicine 11/27/24 Hunter Valencia DO [address] [address] Referring Physician Neurology 01/03/25 FOR RECORDS PERTAINING [...] BE BASED ON THE PRIMARY CLINICAL RECORDS. [employer] provides no warranty or guarantee of the accuracy or completeness of information in this document.
--- NOTE | 2025-06-20 13:34 | P.CN_ITS ---
Consult Note: HPI Data of Consult Patient: known to practice within the last 3 years Consult date: 06/20/25 Requesting Physician: Shira Reddy NP Primary Care Provider: Brooks Montejo MD Consult Narrative Reason for consult: f/u Narrative: Obi Rodríguez a pleasant 49 year old male presents for evaluation of chronic p ain. longstanding hx of low back and bilateral foot pain. known hx of lumbar DDD per pt, recent EMG of BLE consistent with polyneuropathy. Pt reports pain today 3-4/10 pressure in bilateral feet/legs. notes 0/10 low back pain post bilateral L4-5 TFESI. pt is not interested in scs trial at this time for DPN, is interested in qutenza treatments. cc:: CC: Shira Reddy NP Review of Systems ROS Musculoskeletal Reports: extremity pain Meds Home Medications and Allergies Home Medications ?Medication ?Instructions ?Recorded ?Confirmed ?Type etodolac 400 mg tablet 400 mg PO Q12H PRN pain 11/0106/10/25 History glimepiride 2 mg tablet 1 mg PO DAILY 11/26/2406/10 History lisinopril 30 mg tablet 30 mg PO DAILY 11/26/2405/31 History metformin 500 mg tablet 500 mg PO BID 11/26/2406/10 History pregabalin 150 mg capsule (Lyrica) 150 mg PO TID 11/2606/10/25 History Allergies Allergy/AdvReac Type Severity Reaction Status Date / Time cephalexin Allergy Mild Vomiting Verified 06/10/25 09:15 Exam Constitutional Documenting provider has reviewed patient's vital signs: yes Common normals: no apparent distress, oriented x3, healthy appearing, alert and well nourished General appearance: cooperative [facility] Common normals: normocephalic, hearing grossly normal bilaterally and moist oral mucous membranes Head and scalp: normocephalic Eye Common normals: PERRL Pupil: PERRL Neck & C-Spine Common normals: full ROM General: normal visual inspection Chest Common normals: inspection of chest normal Respiratory Common normals: normal respiratory effort, no retractions and no use of accessory muscles Back & Pelvis Lumbar spine/lower back: ROM not limited, no pain with ROM and no lumbar spinal tenderness Extremity Common normals: full ROM Other: chronic vascular discoloration to BLE decreased sensation and pain to bilateral feet Neuro Common normals: oriented x3, CN's II-XII intact bilaterally, no focal motor deficits and deep tendon reflexes 2+ bilaterally Sensorium/orientation: alert Motor exam: strength 5/5 throughout and no movement abnormalities noted Psych Common normals: mental status grossly normal, thought process normal, cooperative, affect normal, speech normal and activity/motor behavior normal Speech: normal speech Thought process: normal thought process Results Imaging lumbar MRI: Attestation: I have reviewed the pertinent imaging results. Radiologist's impression: 5 lumbar type vertebral bodies. Congenitally short pedicles. There is evidence of mild levocurvature. Unremarkable bone marrow signal. Mild superior endplate depression L4 . There is minimal anterolisthesis L4 on L5 noted measuring 3 mm. Mild intervertebral space narrowing L4-5 and less so L3-4. Multilevel facet arthropathy. Conus medullaris terminates normally at L1-L2. Nerve roots of cauda equina are unremarkable. Paraspinal soft tissues are unremarkable. T12-L1: Minor broad-based bulge with facet arthropathy. Intermargin plate spurring. No significant canal or neural from narrowing identified. L2: Broad-based disc bulge with facet arthropathy. Canal neural foramen are patent. L2-L3: Circumferential disc bulge with facet arthropathy and trace right-sided facet joint effusion. Mild canal narrowing. Mild bilateral neural foraminal narrowing. L3-L4: Circumferential disc bulge with moderate facet arthropathy. Congenitally short pedicles noted. Moderate central canal narrowing. Texa-uw-flqksqyf right moderate left neural foraminal narrowing. L4-5: 3 mm anterolisthesis with uncovering of the posterior disc. There is a circumferential disc bulge with advanced facet arthropathy. There is moderate to severe central canal stenosis with crowding left subarticular zone. Additionally, there is bilateral foraminal encroachment moderate severe right and severe left. Please correlate with left L4 and L5 radiculopathy and correlate with possible right L3 radiculopathy. L5 S1: Minimal disc desiccation. Moderate facet arthropathy. Canal patent. Minimal foraminal encroachment caused by the posterior element degenerative changes. Additional Findings Additional findings: If on a controlled substance or opioids, I have checked an [place] report on this patient and there are no aberrancies noted in the prescribing history.??If on a controlled substance or opioid a drug screen was completed and reviewed within the last year, and if there has not been a drug screen completed we ordered one today to monitor higher risk, state monitored pain medication use. As part of providing excellent, safe, comprehensive care, the following was completed at our patient's visit: 1. A medication reconciliation and review to ensure accurate knowledge of current/active medications, including asking our patients to inform us about any [id number] medications or herbal remedies/nutritional supplements/alternative remedies. 2. A review to specifically ensure our patients have had annual screening for screening for depression, screening for tobacco use, and screening for unhealthy alcohol use. For concerning screenings had a discussion with the patient, provided patient education, and recommended follow-up with primary care provider when appropriate. If patient noted with a risk of falling, they received education on strength, gait, and balance training to prevent future risk of falling. Portions of this note may have been carried over from the previous visit and updated as appropriate. Please note this office utilizes paper charting in addition to the electronic medical record. A list of current medications, vitals, and PMH is available there as the clinical staff outside of myself do not have access to [employer] charting during the clinic day operations. As part of providing quality comprehensive care the current medications, vitals, and PMH were reviewed in the paper chart. Assessment and Plan Assessment and Plan (1) Lumbar stenosis with neurogenic claudication: (2) Painful diabetic neuropathy: Assessment and Plan: pt has failed oral gabapentin, pregabalin, and only finds mild benefit to duloxetine. has failed topical lidocaine treatments. pt would like to proceed with qutenza to bilateral feet q 3 months (3) Lumbar degenerative disc disease: (4) Lumbar radiculopathy: (5) Bilateral foot pain: Plan pt not interested in scs trial/implant for DPN at this time proceed with qutenza treatments to bilateral feet q3 months continue medications through PCP f/u in office for treatments
== END 2025-06-20 12:32 | disposition home or self-care (01) ==
LOC: PM 12:31
PROVIDERS: PCP Family Medicine; Visit Provider Nurse Practitioner
DX: M48.062 Spinal stenosis, lumbar region with neurogenic claudication (principal); E11.40 Type 2 diabetes mellitus with diabetic neuropathy, unspecified; M51.369 Other intervertebral disc degeneration, lumbar region without mention of lumbar back pain or lower extremity pain; M54.16 Radiculopathy, lumbar region; M79.671 Pain in right foot; M79.672 Pain in left foot
CPT/HCPCS: G0463

== ENCOUNTER 2025-07-18 09:35 | Outpatient (OUT) | payer OTHER, SELFPAY ==
--- NOTE | 2025-07-18 09:30 | CA_ITS ---
[facility] Test Date: 2025-07-18 Pat Name: ERIN COLE Department: Room: - Gender: Male Hat Blocker: Guillermina Maldonado : 1975 Requested By: JUAN LUIS PERALTA Order Number: [id number] Kaylene MD: THOMAS MORALES M.D. Interpretive Statements Summary of the findings: Right leg: SUSAN= 0.70; TBI= 0.50. Doppler waveforms demonstrate monophasic flow at the posterior tibial and dorsalis pedis arteries. Left leg: SUSAN= 0.84; TBI= 0.49. Doppler waveforms demonstrate monophasic flow at the posterior tibial and dorsalis pedis arteries. Segmental pressures: Segmental pressures indicate bilateral significant inflow and right sided femoropopliteal disease. Pulse volume recordings: PVRs at the high thigh, below knee, and ankle levels show dampened waveforms. Conclusion: Right and left ankle-brachial indices are suggestive of reduced overall arterial flow at rest bilaterally. Toe-brachial indices are suggestive of PAD. Segmental pressures show bilateral significant inflow and right sided femoropopliteal disease. Pulse volume recordings indicate reduced overall resting arterial flow. Electronically Signed On 07-18-2025 18:23:46 EDT by THOMAS MORALES M.D.
--- OUTSIDE RECORDS SUMMARY | 2025-07-18 09:37 | XMS_ITS | Clinical Summary ---
Author Organization [facility] [facility] tem Address [id number] [address] [place] [address] Care Team Providers Care [employer] Teacher Name Role Phone Unavailable Primary Care [...] Comments Depression Screening 1986 Tobacco Screening 1986 Adult BMI Screening 1992 DTaP,Tdap and Td Vaccines (1 - Tdap) 1993 Zoster (Shingles) Vaccine (1 of 2) 2024 Influenza Vaccine 07/01/2025 Medical Devices Not on file Insurance WORKERS COMPENSATION
--- OUTSIDE RECORDS SUMMARY | 2025-07-18 09:39 | XMS_ITS | CCD ---
Author Organization [facility] Care Team Providers Care Predatory Game Hunter Name Role Phone KATHRYN ., DR MCKNIGHT Admitting Unavailable HOY ., DR MCKNIGHT Attending Unavailable HOY ., DR MCKNIGHT Primary Care Unavailable HOY ., DR MCKNIGHT Admitting Unavailable HOY ., DR MCKNIGHT Attending Unavailable HOY ., DR MCKNIGHT Primary Care Unavailable HOY ., DR MCKNIGHT Consulting Unavailable Raymond YAO, Andri Unavailable [phone] Juan Luis Peralta MD Primary Care Provider Mary Valencia DO Unavailable [phone] MARY VALENCIA Attending Unavailable GIEDRAITIS, ANDRIUS Referring Unavailable Raymond YAO, Andrius Vsusan Attending Unavailable Raymond YAO, Andrius Rena Attending Unavailable Problems Problem Classification Problem Date Documented [...] Reference Range Facility EMG 2 Extremitieson 01-04-20 25 Polyneuropathy, severe [facility] NVC 9-10 Nerveson 01-03-2025 Polyneuropathy, severe [facility] CBC AUTO DIFFon 10-13-2022 BASO # 0.1 103/ul Normal 0.0-0.1 [facility] Comment on above: Performed By: #### C BC #### [facility] [address] [address] [address] Gideon aP Basophils/100 WBC (Bld) 0.7 % Normal 0.2-2.0 [facility] Comment on above: Performed By: #### C BC #### [facility] [address] [address] [address] Gideon Pa EO # 0.4 103/ul Normal 0.0-0.7 [facility] Comment on above: Performed By: #### C BC #### [facility] [address] [place] [address] Dr. Gideon Pa Eosinophils/100 WBC (Bld) 3.9 % Normal 0.9-7.0 [facility] Comment on above: Performed By: #### C BC #### [facility] [address] [address] [address] Gideon Pa Erythrocyte distribution width (RBC) [Ratio] 13.8 % Normal 11.0-15.0 [facility] Comment on above: Performed By: #### C BC #### [facility] [address] [place] [address] Dr. Gideon Pa Hematocrit (Bld) [Volume fraction] 51.7 % Normal 42.0-54.0 [facility] Comment on above: Performed By: #### C BC #### [facility] [address] [address] [address] Gideon Pa Hemoglobin (Bld) [Mass/Vol] 18.0 g/dL Normal 14.0-18.0 [facility] Comment on above: Performed By: #### C BC #### [facility] [address] [place] [address] Dr. Gideon Pa IG # 0.05 10e3/ul Critically high 0.00-0.[address] [facility] Comment on above: Performed By: #### C BC #### [facility] [address] [place] [address] Dr. Gideon Pa IG % 0.5 % Normal 0.0-0.5 [facility] Comment on above: Performed By: #### C BC #### [facility] [address] [place] [address] Dr. Gideon Pa LYMPH # 2.4 103/ul Normal 1.2-3.8 [facility] Comment on above: Performed By: #### C BC #### [facility] [address] [place] [address] Dr. Gideon Pa Lymphocytes/100 WBC (Bld) 24.2 % Normal 20.5-60.0 [facility] Comment on above: Performed By: #### C BC #### [facility] [address] [place] [address] Dr. Gideon Pa MANUAL DIFF REQ NO Normal [facility] Comment on above: Performed By: #### C BC #### [facility] [address] [place] [address] Dr. Gideon Pa MCH (RBC) [Entitic mass] 29.5 pg Normal 25.9-34.0 [facility] Comment on above: Performed By: #### C BC #### [facility] [address] [place] [address] Dr. Gideon Pa MCHC (RBC) [Mass/Vol] 34.8 g/dL Normal 29.9-35.2 [facility] Comment on above: Performed By: #### C BC #### [facility] [address] [place] [address] Dr. Gideon Pa MCV (RBC) [Entitic vol] 84.6 fL Normal 80.0-94.0 [facility] Comment on above: Performed By: #### C BC #### [facility] [address] [place] [address] Dr. Gideon Pa MONO # 0.9 103/ul Critically high 0.3-0.8 [facility] Comment on above: Performed By: #### C BC #### [facility] [address] [place] [address] Dr. Gideon Pa Monocytes/100 WBC (Bld) 8.5 % Normal 1.7-12.0 [facility] Comment on above: Performed By: #### C BC #### [facility] [address] [place] [address] Dr. Gideon Pa NEUT # 6.3 103/ul Normal 1.4-6.5 [facility] Comment on above: Performed By: #### C BC #### [facility] [address] [place] [address] Dr. Gideon Pa Neutrophils/100 WBC (Bld) 62.2 % Normal 43.0-75.0 [facility] Comment on above: Performed By: #### C BC #### [facility] [address] [place] [address] Dr. Gideon Pa Platelet mean volume (Bld) [Entitic vol] 10.2 fL Normal 9.5-13.5 [facility] Comment on above: Performed By: #### C BC #### [facility] [address] [place] [address] Dr. Gideon Pa PLT 230 103/ul Normal 150-450 [facility] Comment on above: Performed By: #### C BC #### [facility] [address] [place] [address] Dr. Gideon Pa RBC 6.11 106/ul Critically high 4.70-6.10 [facility] Comment on above: Performed By: #### C BC #### [facility] [address] [place] [address] Dr. Gideon Pa WBC 10.1 103/ul Normal 4.0-11.0 [facility] Comment on above: Performed By: #### C BC #### [facility] [address] [place] [address] Dr. Gideon Pa FREE T3on 10-13-2022 FREE T3 2.98 pg/mlL Normal 2.18-3.98 [facility] Comment on above: Performed By: #### F T3, TSH, LIPID, T4, CMP #### [facility] [address] [address] [address] Gideon Pa GLYCOHEMOGLOBIN A1Con 2021 ADA RECOMMENDATION SEE BELOW Normal [facility] Comment on above: Result Comment: ADA RECOMMENDED LIMIT 4.0 - 6.0 ADA THERAPEUTIC TARGET < 7.0 ACTION SUGGESTED > 7.0 Performed By: #### A 1C #### [facility] [address] [address] [address] Gideon Pa Glucose [Mass/Vol] 240 mg/dL Normal [facility] Comment on above: Performed By: #### A 1C #### [facility] [address] [address] [address] Gideon Pa HbA1c (Bld) [Mass fraction] 10.0 % Critically high 4.5-6.2 [facility] Comment on above: Performed By: #### A 1C #### [facility] [address] [place] [address] Dr. Gideon Pa LIPID PROFILEon 10-13-2022 CHOL-HDL RATIO NORM SEE BELOW Normal [facility] Comment on above: Result Comment: 3.3 - 4.4 LOW RISK 4.4 - 7.1 AVERAGE RISK 7.1 - 11.0 MODERATE RISK >11.0 HIGH RISK Performed By: #### F T3, TSH, LIPID, T4, CMP #### [facility] [address] [address] [address] Gideon Pa Cholesterol [Mass/Vol] 150 mg/dL Normal <=200 [facility] Comment on above: Performed By: #### F T3, TSH, LIPID, T4, CMP #### [facility] [address] [address] [address] Gideon Pa Cholesterol in HDL [Mass/Vol] 30 mg/dL Critically low 40-60 [facility] Comment on above: Performed By: #### F T3, TSH, LIPID, T4, CMP #### [facility] [address] [address] [address] Gideon Pa Cholesterol in LDL [Mass/Vol] 81.0 mg/dL Normal [facility] Comment on above: Performed By: #### F T3, TSH, LIPID, T4, CMP #### [facility] [address] [address] [address] Gideon Pa Cholesterol.total/Cho lesterol in HDL [Mass ratio] 5.0 {ratio} Normal [facility] Comment on above: Performed By: #### F T3, TSH, LIPID, T4, CMP #### [facility] [address] [address] [address] Gideon Pa HDL NORMAL > or = 60 mg/dl - LOW CARDIOVASCULAR RISK <40 mg/dl - HIGH CARDIOVASCULAR RISK Normal [facility] Comment on above: Performed By: #### F T3, TSH, LIPID, T4, CMP #### [facility] [address] [address] [address] Gideon Pa LDL CALC NORMAL SEE BELOW Normal [facility] Comment on above: Result Comment: <100 mg/dl OPTIMAL 100 - 129 mg/dl NEAR OR ABOVE OPTIMAL 130 - 159 mg/dl BORDERLINE HIGH 160 - 189 mg/dl HIGH >190 mg/dl VERY HIGH Performed By: #### F T3, TSH, LIPID, T4, CMP #### [facility] [address] [address] [address] Gideon Pa Triglyceride [Mass/Vol] 195 mg/dL Critically high <=150 [facility] Comment on above: Performed By: #### F T3, TSH, LIPID, T4, CMP #### [facility] [address] [address] [address] Gideon Pa VLDL CALC 39.0 mg/dL Normal [facility] Comment on above: Performed By: #### F T3, TSH, LIPID, T4, CMP #### [facility] [address] [address] [address] Gideon Pa PROF 14(COMP METB)on 022 Albumin [Mass/Vol] 3.7 g/dL Normal 3.4-5.0 [facility] Comment on above: Performed By: #### F T3, TSH, LIPID, T4, CMP #### [facility] [address] [address] [address] Gideon Pa Albumin/Globulin [Mass ratio] 1.0 {ratio} Normal [facility] Comment on above: Performed By: #### F T3, TSH, LIPID, T4, CMP #### [facility] [address] [place] [address] Dr. Gideon Pa ALP [Catalytic activity/Vol] 131 U/L Critically high 46-116 [facility] Comment on above: Performed By: #### F T3, TSH, LIPID, T4, CMP #### [facility] [address] [place] [address] Dr. Gideon Pa ALT [Catalytic activity/Vol] 29 U/L Normal 16-63 [facility] Comment on above: Performed By: #### F T3, TSH, LIPID, T4, CMP #### [facility] [address] [place] [address] Dr. Gideon Pa Anion gap [Moles/Vol] 12.4 mmol/L Normal [facility] Comment on above: Performed By: #### F T3, TSH, LIPID, T4, CMP #### [facility] [address] [place] [address] Dr. Gideon Pa AST [Catalytic activity/Vol] 14 U/L Critically low 15-37 [facility] Comment on above: Performed By: #### F T3, TSH, LIPID, T4, CMP #### [facility] [address] [place] [address] Dr. Gideon Pa Bilirubin [Mass/Vol] 0.6 mg/dL Normal 0.2-1.0 [facility] Comment on above: Performed By: #### F T3, TSH, LIPID, T4, CMP #### [facility] [address] [place] [address] Dr. Gideon Pa Calcium [Mass/Vol] 8.9 mg/dL Normal 8.5-10.1 [facility] Comment on above: Performed By: #### F T3, TSH, LIPID, T4, CMP #### [facility] [address] [place] [address] Dr. Gideon Pa Chloride [Moles/Vol] 100 mmol/L Normal 98-107 [facility] Comment on above: Performed By: #### F T3, TSH, LIPID, T4, CMP #### [facility] [address] [address] [address] Gideon Pa CO2 [Moles/Vol] 26.8 mmol/L Normal 21.0-32.0 [facility] Comment on above: Performed By: #### F T3, TSH, LIPID, T4, CMP #### [facility] [address] [address] [address] Gideon Pa Creatinine [Mass/Vol] 0.73 mg/dL Normal 0.70-1.30 [facility] Comment on above: Performed By: #### F T3, TSH, LIPID, T4, CMP #### [facility] [address] [address] [address] Gideon Pa EGFR-AF CHILEAN >60 Normal >=60 [facility] Comment on above: Performed By: #### F T3, TSH, LIPID, T4, CMP #### [facility] [address] [place] [address] Dr. Gideon Pa EGFR-NON AF CHILEAN >60 Normal >=60 [facility] Comment on above: Performed By: #### F T3, TSH, LIPID, T4, CMP #### [facility] [address] [place] [address] Dr. Gideon Pa Globulin (S) [Mass/Vol] 3.8 g/dL Normal [facility] Comment on above: Performed By: #### F T3, TSH, LIPID, T4, CMP #### [facility] [address] [address] [address] Gideon Pa Glucose [Mass/Vol] 314 mg/dL Critically high 74-106 T [facility] Comment on above: Performed By: #### F T3, TSH, LIPID, T4, CMP #### [facility] [address] [address] [address] Gideon Pa Potassium [Moles/Vol] 4.2 mmol/L Normal 3.5-5.1 [facility] Comment on above: Performed By: #### F T3, TSH, LIPID, T4, CMP #### [facility] [address] [place] [address] Dr. Gideon Pa Protein [Mass/Vol] 7.5 g/dL Normal 6.4-8.2 [facility] Comment on above: Performed By: #### F T3, TSH, LIPID, T4, CMP #### [facility] [address] [address] [address] Gideon Pa Sodium [Moles/Vol] 135 mmol/L Critically low 136-145 Th [facility] Comment on above: Performed By: #### F T3, TSH, LIPID, T4, CMP #### [facility] [address] [place] [address] Dr. Gideon Pa Urea nitrogen [Mass/Vol] 14.0 mg/dL Normal 7.0-18.0 [facility] Comment on above: Performed By: #### F T3, TSH, LIPID, T4, CMP #### [facility] [address] [place] [address] Dr. Gideon Pa Urea nitrogen/Creatinine [Mass ratio] 19.2 mg/mg Normal [facility] Comment on above: Performed By: #### F T3, TSH, LIPID, T4, CMP #### [facility] [address] [place] [address] Dr. Gideon Pa T4on 10-13-2022 T4 [Mass/Vol] 11.30 ug/dL Normal 4.50-12.10 [facility] Comment on above: Performed By: #### F T3, TSH, LIPID, T4, CMP #### [facility] [address] [place] [address] Dr. Gideon Pa TSHon 10-13-2022 TSH 0.920 uIU/mL Normal 0.358-3.[address] [facility] Comment on above: Performed By: #### F T3, TSH, LIPID, T4, CMP #### [facility] [address] [place] [address] Dr. Gideon Pa Encounters Encounter Date Encounter Type Care Provider Facility Start: 06-10-2025 End: 06-10-2025 ambulatory Dalton Andrade MD Facility:[facility] Start: 01-03-2025 End: 01-03-2025 Bamboo flowslogan Valencia DO Work Phone: [facility] Start: 01-03-2025 End: 01-03-2025 Bamboo flowsheet Mary Valencia DO Work Phone: [facility] Start: 01-03-2025 End: 01-03-2025 Patient encounter procedure Mary Valencia DO Work Phone: [facility] Comment on above: Paresthesia (Primary Dx) Start: 01-03-2025 End: 01-03-2025 ambulatory MARY VALENCIA Not Available Start: 11-26-2024 End: 11-26-2024 ambulatory Dalton [facility] Start: 10-13-2022 End: 10-14-[address] JUAN LUIS PERALTA . Facility: Start: 08-26-[address] JUAN LUIS PERALTA . Facili ty:[facility]1 Procedures Date Procedure Procedure Detail Performing Clinician Start: 01-03-2025 End: 01-03-2025 Needle emg ea extremty w/paraspinl area complete Mary Valencia DO Work Phone: Start: 10-13-[address] RENETTA PERALTA . Comment on above: Performed By: #### P [facility] #### [facility] [address] [place] [address] Dr. Gideon Pa Plan of Treatment Date Care Activity Detail Author Start: 01-03-2025 End: 01-03-2025 Patient encounter procedure 01/03/2025 1:30 PM EST Procedure Visit [facility] [address] [place] [phone] Mary Valencia DO [address] [place] [id number] Arrived [facility] Comment on above: Arrived Start: 07-01-2024 Influenza vaccination Influenza Vacc ine (#1) [facility] Start: 1975 Screening for malign ant neoplasm of colon [facility] Payers Date Payer Category Payer Private Health Insurance [id number] 1974 Unknown [id number] [id number] 1974 Unknown [id number] 1974 Unknown [id number] [id number] [id number] 1974 Unknown [id number] [id number] 1974 Unknown [id number] [id number] 1959 Self-pay [id number] 1959 Unknown [id number] 1960 Unknown [id number] Social History Date Type Detail Facility Tobacco smoking stat [facility] Tobacco smoking consumption unknown [facility] Start: 1975 Sex assigned at Not on file N [facility] Gender identity Not on file [facility] are History of Present illness Narrative 01-03-2025 Mary Valencia DO - 01/03/2025 1:30 PM EST Note Date & Type Note Facility 01-03-2025 History of Presen t illness Narrative Images from the original note were not included. Reason for Appointment: EMG Patient: Obi Rodríguez : 1975 [facility] Computer: [employer] Referring Physician: Dr. Dalton Andrade EMG: BLE protection engineer: Jaylen Ozuna RT(R) Office Location: [place] Reason for EMG: c/o numbness/tingling & pain in bilateral feet/legs, low back pain into bilateral hips R>L. Hx of DM. 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 Patient appeared to have tolerated the test well despite some discomfort due to the nature of the test. documented in this encounter [facility] Evaluation note Note Date & Type Note Facility Evaluation note Diagnosis Paresthesia- Primary Disturbance of skin sensation documented in this encounter [facility] Reason for visit Narrative Other Medical (Routine) - Closed Note Date & Type Note Facility Reason for visit Narrative Specialty Diagnoses / Procedures Referred By Sean t Referred To Contact Neurology Diagnoses Other specified diabetes mellitus with diabetic neuropathy, unspecified ([facility]) Procedures FL NEEDLE EMG EA EXTREMTY W/PARASPINL AREA COMPLETE [place] NERVE CONDUCTION STUDIES 9-10 STUDIES Dalton Andrade MD [address] [phone] Phone: tel: fax: Barrett Leger MD [address] [phone] Phone: tel: fax: Referral ID Status Reason Start Date Expiration Date V isits Requested Visits Authorized [id number] Closed Perform Procedure 11/27/2024 05/26/2025 1 1 [...] section and content) DATE CREATED [facility] DATE CREATED AUTHOR AUTHOR'S ORGANIZ ATION 01/05/2025 [facility] Special[facility] EPIC DATE CREATED AUTHOR AUTHOR'S ORGANIZ ATION 06/28/2025 [facility] Care Teams (unrecognized sec tion and content) Predatory Game Hunter Relationship Specialty Start Date End Date Juan Luis Peralta MD [address] [place] [phone] PCP - General Family Medicine 01/03/25 Dalton Andrade MD [address] [place] [address] Referring Physician Pain Medicine 11/27/24 Mary Valencia DO [address] [address] Referring Physician Neurology 01/03/25 Predatory Game Hunter Relationship Specialty Start Date End Date Juan Luis Peralta MD [address] [place] [facility] [place] [address] PCP - General Family Medicine 01/03/25 Dalton Andrade MD [address] [place] [facility] [address] Referring Physician Pain Medicine 11/27/24 Mary Valencia DO [address] [address] Referring Physician Neurology 01/03/25 FOR RECORDS PERTAINING [...] BE BASED ON THE PRIMARY CLINICAL RECORDS. [employer] provides no warranty or guarantee of the accuracy or completeness of information in this document.
== END 2025-07-18 09:36 | disposition home or self-care (01) ==
LOC: CARD 09:35
PROVIDERS: PCP Family Medicine; Visit Provider Family Medicine
DX: M79.606 Pain in leg, unspecified (principal); I73.89 Other specified peripheral vascular diseases
CPT/HCPCS: 93923